=== PATIENT | female | born 1965 | race Caucasian/White ===

== ENCOUNTER 2017-02-24 19:51 | Emergency (ER) | payer BC ==
[~2017-02-24] VITALS: Ht 175.3 cm; Wt 71.7 kg
[~2017-02-24 19:51] MED LIST: ACET-1256 PO; ATV/1 PO; BUSP-8 PO; DICY10CA12 PO; ESCI1TAB10 PO; ESTR1TAB2 PO; FLUT0.0529 NAE; FLXHP PO; IBUP-1050 PO; ONDA4TAB10 PO; RANI150T3 PO
[2017-02-24 20:03] VITALS: TEMP 36.9; Ht 175.3 cm; Wt 71.7 kg
[2017-02-24] MEDS ORDERED: FLUT0.15 NAE (22:37)
[2017-02-24] MEDS ORDERED: CYCL10TA6 PO (22:37)
[2017-02-24] MEDS ORDERED: ONDANSETRON INJ 2 MG/ML 2 ML VIAL IV STA (22:44)
[2017-02-24] MEDS ORDERED: SODIUM CHLORIDE 0.9% 1000ML 1,000 ML IV STA (22:44)
[2017-02-24] MEDS ORDERED: MoRPHine SULFATE 2 MG/ML CARP IV STA (22:44)
[2017-02-24 23:00] LABS: BASO % 0.9 %; BASO ABS # 0.05 K/uL (0-0.2); COMPLETE YES; EOS % 2.7 %; HEMATOCRIT 36.7 % (37-47); IG% 0.2 %; LYMPH % 45.2 %; LYMPH ABS # 2.54 K/uL (1.2-3.4); MEAN CELL VOLUME 91.8 fL (80-100); MEAN CORPUSCULAR HGB CONC 34.9 g/dl (32-36); MEAN PLATELET VOLUME 9.8 fL (7.4-10.4); MONO % 5.3 %; NEUT % 45.7 %; PLATELET COUNT 217 K/uL (130-400); WHITE BLOOD COUNT 5.62 K/uL (4.8-10.8)
[2017-02-24] MEDS ORDERED: OPTIRAY 320 IV PRN (23:00)
--- NOTE | 2017-02-24 23:04 | DIAGNOSTIC IMAGING REPORT ---
CHEST ONE VIEW PORTABLE CLINICAL HISTORY: cp dyspnea COMPARISON STUDY: No previous studies for comparison. FINDINGS: The bones soft tissues and hemidiaphragms are normal. The cardiomediastinal silhouette is normal. The lungs are clear. The pulmonary vasculature is normal. IMPRESSION: Negative chest. Electronically signed by: Titi Townsend M.D. 02/24/2017 11:02 PM Dictated Date/Time: 02/24/2017 11:02 PM
[2017-02-24 23:07] LABS: PARTIAL THROMBOPLASTIN RATIO 1.1; PROTHROMBIN TIME (PATIENT) 10.6 SECONDS (9.0-12.0)
[2017-02-24 23:10] LABS: ISTAT CREATININE 0.7 mg/dl (0.6-1.3); ISTAT HEMOGLOBIN 13.3 g/dl (12.0-16.0); ISTAT IONIZED CALCIUM 1.23 mmol/l (1.12-1.32)
[2017-02-24 23:15] LABS: URINE APPEARANCE CLEAR (CLEAR); URINE BILIRUBIN NEG (NEG); URINE COLOR YELLOW; URINE NITRITE NEG (NEG); URINE PH 7.5 (4.5-7.5); URINE SPECIFIC GRAVITY 1.004 (1.000-1.030); UROBILINOGEN NEG (NEG); ZZUR CULT IF INDIC CLEAN CATCH NO
[2017-02-24 23:20] LABS: BUN/CREATININE RATIO 8.6 (10-20); CALCIUM 9.1 mg/dl (8.5-10.1); CREATININE 0.8 mg/dl (0.60-1.20); MAGNESIUM 2.2 mg/dl (1.8-2.4); POTASSIUM 3.7 mmol/L (3.5-5.1)
[2017-02-24 23:23] LABS: MANUAL MICROSCOPIC REQUIRED? NO; REVIEW REQ? NO
[2017-02-24 23:24] LABS: ALB/GLOB RATIO 1.1 (0.9-2); CKMB/CK RATIO 1.2 (0-3.0)
[2017-02-25] MEDS ORDERED: MoRPHine SULFATE 4 MG/ML 1 ML CARP\\VIAL IV STA (00:04)
[2017-02-25] MEDS ORDERED: NORCO 5/325MG HOME PACK PO ONE (01:45)
[2017-02-25] MEDS ORDERED: HYDR-5688 PO ×2 (01:46→01:53)
--- NOTE | 2017-02-25 01:47 | EMERGENCY ROOM VISIT NOTE ---
History First contact with patient: 22:28 Chief Complaint: BACK PAIN Stated Complaint: LOW BACK PAIN, NAUSEA, L ARM FEELS ODD History of Present Illness The patient is a 51 year old female who presents to the Emergency Department by private vehicle for evaluation of her back pain with radiation to her chest and arm. She reports that she developed pain in her upper back earlier today. She reports that her symptoms progressively worsened this evening which prompted her to take a muscle relaxer. She used this medication without relief of symptoms. She had transient episode of pain to the LEFT arm. The patient has a long-standing history of spine disease. She is on medications for this daily. The patient reports a history of celiac disease alone. She reports no history of high blood pressure heart disease. She reports no significant family history of heart disease. The patient rates her current discomfort as a 7/10. She denies any headaches, dizziness, lightheadedness, palpitations, shortness of breath, pleuritic pain, nausea, or vomiting. Review of Systems A complete 10-point Review of Systems was discussed with the patient, with pertinent positives and negatives listed in the History of Present Illness. All remaining Review of Systems questions can be considered negative unless otherwise specified. Past Medical/Surgical History Medical Problems: (1) Celiac disease (2) Psoriasis Surgical Problems: (1) History of cholecystectomy (2) History of hysterectomy Family History Cancer FH: HTN (hypertension) FH: lung disease Heart disease Social History Smoking Status: Never Smoker Alcohol Use: none Drug Use: none Marital Status: Housing Status: lives with family Occupation Status: employed Current/Historical Medications Scheduled Buspirone Hcl (Buspirone Hcl), 15 MG PO BID Escitalopram Oxalate (Lexapro), 20 MG PO DAILY Estradiol (Estrace), 1 MG PO DAILY Fluticasone Propionate (Nasal) (Flonase Allergy Relief), 2 SPRAYS SLIM DAILY Ranitidine Hcl (Zantac), 150 MG PO BID Scheduled PRN Cyclobenzaprine Hcl (Flexeril), 10 MG PO TID PRN for Muscle Spasms Hydrocodone/Acetaminophen 5MG/325MG ([place] 5MG/325MG), 1-2 TABLET PO Q4H PRN for Pain Ibuprofen (Advil), 400 MG PO QID PRN for Headache or Pain Lorazepam (Ativan), 1 MG PO DAILY PRN for Anxiety Ondasetron Odt (Zofran Odt), 4 MG PO Q6H PRN for Nausea Allergies Coded Allergies: Adalimumab (Verified Allergy, Intermediate, WHELTS AT INJECTION SITE, 02/24) Adhesives (Verified Allergy, Mild, 02/24/17) Erythromycin (Verified Allergy, Mild, HIVES, 02/24/17) Bacitracin (Verified Allergy, Unknown, Unknown, 02/24/17) Reported by PT Naproxen (Verified Allergy, Unknown, Unknown, 02/24/17) Reported by PT. Neomycin (Verified Allergy, Unknown, Unknown, 02/24/17) Reported by PT Polymyxin B (Verified Allergy, Unknown, 02/24/17) Rabeprazole (Verified Allergy, Unknown, 02/24/17) Gluten (Verified Adverse Reaction, Mild, flattens villae, 02/24/17) Moxifloxacin (Verified Adverse Reaction, Unknown, VISUAL DISTURBANCE, 02/24) Physical Exam Vital Signs Date Time Temp Pulse Resp B/P Pulse Ox O2 Delivery O2 Flow Rate FiO2 02/25/17 01:59 74 18 140/88 98 02/25/17 01:00 66 18 142/80 97 Room Air 02/25/17 00:00 68 18 150/87 97 Room Air 02/24/17 23:42 70 02/24/17 23:39 Room Air 02/24/17 23:12 65 18 140/83 94 Room Air 02/24/17 21:47 54 18 146/74 100 Room Air 02/24/17 20:03 36.9 67 18 146/90 97 Room Air Pain Rating (0-10): 7 Physical Exam VITAL SIGNS - Vital signs and nursing notes were reviewed. GENERAL - 51-year-old female appearing her stated age who is in no acute distress. Communicates well with provider and answers questions appropriately. NECK - Neck with FROM. Supple to palpation. No spinous process or paraspinal muscle tenderness to palpation. LUNGS - Chest wall symmetric without accessory muscle use, intercostals retractions, or central cyanosis. Normal vesicular breath sounds CTA B/L. No wheezes, rales, or rhonchi appreciated. CARDIAC - RRR with S1/S2. No murmur, rubs, or gallops appreciated. No reproducible tenderness to palpation appreciated over the anterior chest wall. ABDOMEN - Abdominal contour flat and without pulsations or visible masses. BS normoactive all four quadrants. No tenderness, palpable masses, hepatosplenomegaly, or ascites noted. BACK - tenderness with palpation to the bilateral paraspinal musculature of the mid thoracic spine. No point tenderness over the spinous processes. No step- off deformities noted. EXTREMITIES - No clubbing or peripheral cyanosis. No pretibial edema present. +3 /5 radial and dorsalis pedis pulses palpated throughout. +5/5 strength noted in UE/LE bilaterally. NEUROLOGIC - Cranial nerves II through XII grossly intact. Sensory intact to light touch throughout. Reflexes equal bilaterally in the lower extremities. PSYCH - A&Ox3 and cooperates fully with examiner. Pt is very pleasant and interacts well with examiner. Medical Decision & Procedures ER Provider Diagnostic Interpretation: Radiological imaging and reports were reviewed by myself. Radiologist's Interpretation as follows: CHEST ONE VIEW PORTABLE CLINICAL HISTORY: cp dyspnea COMPARISON STUDY: No previous studies for comparison. FINDINGS: The bones soft tissues and hemidiaphragms are normal. The cardiomediastinal silhouette is normal. The lungs are clear. The pulmonary vasculature is normal. IMPRESSION: Negative chest. CT ANGIOGRAPHY THE CHEST WITHOUT A WITH CONTRAST CLINICAL HISTORY: Chest and back pain. Possible dissection. COMPARISON STUDY: Chest x-ray dated 02/24/2017 FINDINGS: Unenhanced images were obtained of the thorax. The patient was then scanned in a dynamic helical fashion during intravenous administration 1 through 18 cc of Optiray 320. MIP imaging was performed. Unenhanced images reveal no evidence of acute aortic hematoma. Postcontrast images reveal a 2 cm nodule of the thyroid isthmus. Dedicated thyroid ultrasonography is recommended in follow-up. There is no evidence of thoracic aortic aneurysm or dissection. There are no pulmonary artery filling defects to indicate acute pulmonary embolism. There are no pathologically enlarged axillary, mediastinal, or hilar lymph nodes. No pleural effusions are visualized. There is no evidence of focal pulmonary consolidation. There is a 4 mm solid right lower lobe pulmonary nodule. This is visualized on image #[id number]/321. There is a 5 mm solid right upper lobe pulmonary nodule as visualized on image #83/321. There is also a 4 mm pleural-based solid right upper lobe pulmonary nodule as visualized in image #83/321. Follow-up per Fleischner criteria is recommended. IMPRESSION: 1. Subcentimeter right lung pulmonary nodules. Follow-up per Fleischner criteria is recommended 2. 2 cm thyroid nodule. Thyroid ultrasonography is recommended in follow-up 3. No evidence of aortic aneurysm or dissection. CT SCAN OF THE THORACIC SPINE WITHOUT IV CONTRAST CLINICAL HISTORY: Thoracic back pain. COMPARISON STUDY: CT scan of the chest performed concurrently on 02/24/2017. TECHNIQUE: CT scan of the thoracic spine is performed from the lower cervical spine to the upper lumbar spine. Images are reviewed in the axial, sagittal, and coronal planes. IV contrast was not administered for this examination. CT DOSE: 525.39 mGy.cm FINDINGS: The skeletal structures appear osteopenic. There is no evidence of fracture or malalignment. No lytic or blastic bony lesion is seen. The transverse and spinous processes are intact. Small anterior osteophytes are noted throughout. The intervertebral disc spaces appear maintained. The central canal is clear as visualized. There is no evidence of neural foraminal stenosis. The visualized posterior ribs appear intact. The paraspinous soft tissues are within normal limits. There is a 1.7 cm low-attenuation nodule in the thyroid isthmus. The visualized lung parenchyma appears clear. See report of chest CT performed concurrently for detailed intrathoracic findings. IMPRESSION: 1. There is no acute bony abnormality seen involving the thoracic spine. 2. There is a 1.7 cm low-attenuation nodule identified in the thyroid isthmus. Follow-up with a nonemergent thyroid ultrasound is recommended for further assessment. Laboratory Results 02/24/17 22:43 Red Blood Count 4.00, Mean Corpuscular Volume 91.8, Mean Corpuscular Hemoglobin 32.0, Mean Corpuscular Hemoglobin Concent 34.9, Mean Platelet Volume 9.8, Neutrophils (%) (Auto) 45.7, Lymphocytes (%) (Auto) 45.2, Monocytes (%) (Auto) 5.3, Eosinophils (%) (Auto) 2.7, Basophils (%) (Auto) 0.9, Neutrophils # (Auto) 2.57, Lymphocytes # (Auto) 2.54, Monocytes # (Auto) 0.30, Eosinophils # (Auto) 0.15, Basophils # (Auto) 0.05 02/24/17 22:43 Test 02/24/17 22:43 02/24/17 22:53 02/24/17 22:54 02/24/17 22:55 White Blood Count 5.62 K/uL (4.8-10.8) Red Blood Count 4.00 M/uL (4.2-5.4) Hemoglobin 12.8 g/dL (12.0-16.0) Hematocrit 36.7 % (37-47) Mean Corpuscular Volume 91.8 fL (80-100) Mean Corpuscular Hemoglobin 32.0 pg (25-34) Mean Corpuscular Hemoglobin Concent 34.9 g/dl (32-36) Platelet Count 217 K/uL (130-400) Mean Platelet Volume 9.8 fL (7.4-10.4) Neutrophils (%) (Auto) 45.7 % Lymphocytes (%) (Auto) 45.2 % Monocytes (%) (Auto) 5.3 % Eosinophils (%) (Auto) 2.7 % Basophils (%) (Auto) 0.9 % Neutrophils # (Auto) 2.57 K/uL (1.4-6.5) Lymphocytes # (Auto) 2.54 K/uL (1.2-3.4) Monocytes # (Auto) 0.30 K/uL (0.11-0.59) Eosinophils # (Auto) 0.15 K/uL (0-0.5) Basophils # (Auto) 0.05 K/uL (0-0.2) RDW Standard Deviation 41.9 fL (36.4-46.3) RDW Coefficient of Variation 12.3 % (11.5-14.5) Immature Granulocyte % (Auto) 0.2 % Immature Granulocyte # (Auto) 0.01 K/uL (0.00-0.02) Prothrombin Time 10.6 SECONDS (9.0-12.0) Prothromb Time International Ratio 1.0 (0.9-1.1) Activated Partial Thromboplast Time 27.3 SECONDS (21.0-31.0) Partial Thromboplastin Ratio 1.1 Est Creatinine Clear Calc Drug Dose 88.0 ml/min Estimated GFR () 99.6 Estimated GFR (Non- 86.0 BUN/Creatinine Ratio 8.6 (10-20) Calcium Level 9.1 mg/dl (8.5-10.1) Magnesium Level 2.2 mg/dl (1.8-2.4) Total Bilirubin 0.9 mg/dl (0.2-1) Aspartate Amino Transf (AST/SGOT) 17 U/L (15-37) Alanine Aminotransferase (ALT/SGPT) 16 U/L (12-78) Alkaline Phosphatase 63 U/L (45-117) Total Creatine Kinase 93 U/L (26-192) Creatine Kinase MB 1.1 ng/ml (0.5-3.6) Creatine Kinase MB Ratio 1.2 (0-3.0) Total Protein 7.8 gm/dl (6.4-8.2) Albumin 4.0 gm/dl (3.4-5.0) Globulin 3.8 gm/dl (2.5-4.0) Albumin/Globulin Ratio 1.1 (0.9-2) Lipase 106 U/L (73-393) Bedside Troponin I 0.000 ng/ml (0-0.045) Bedside Hemoglobin 13.3 g/dl (12.0-16.0) Bedside Hematocrit 39 % (37-47) Bedside Sodium 141 mEq/L (135-144) Bedside Potassium 3.7 mEq/L (3.3-5.0) Bedside Chloride 101 mEq/L (101-112) Bedside Total CO2 26 mEq/l (24-31) Anion Gap 19.0 mmol/L (16-25) Bedside Blood Urea Nitrogen 6 mg/dl (7-18) Bedside Creatinine 0.7 mg/dl (0.6-1.3) Bedside Glucose (other) 93 mg/dl (70-99) Bedside Ionized Calcium (Lynn) 1.23 mmol/l (1.12-1.32) Urine Color YELLOW Urine Appearance CLEAR (CLEAR) Urine pH 7.5 (4.5-7.5) Urine Specific [place] 1.004 (1.000-1.030) Urine Protein NEG (NEG) Urine Glucose (UA) NEG (NEG) Urine Ketones NEG (NEG) Urine Occult Blood TRACE (NEG) Urine Nitrite NEG (NEG) Urine Bilirubin NEG (NEG) Urine Urobilinogen NEG (NEG) Urine Leukocyte Esterase NEG (NEG) Urine WBC (Auto) 0 /hpf (0-5) Urine RBC (Auto) 0-4 /hpf (0-4) Urine Hyaline Casts (Auto) 0 /lpf (0-5) Urine Epithelial Cells (Auto) 10-20 /lpf (0-5) Urine Bacteria (Auto) NEG (NEG) Medications Administered Medications (Trade) Dose Ordered Sig/Fahad Route Start Time Stop Time Status Last Admin Dose Admin Sodium Chloride (Nss 1000ml) 1,000 ml @ 999 mls/hr Q1H1M STAT IV 02/24/17 22:44 02/24/17 23:44 DC 02/24/17 23:08 999 MLS/HR Morphine Sulfate (MoRPHine SULFATE INJ) 2 mg NOW STAT IV 02/24/17 22:44 02/24/17 22:48 DC 02/24/17 23:08 2 MG Ondansetron HCl (Zofran Inj) 4 mg NOW STAT IV 02/24/17 22:44 02/24/17 22:48 DC 02/24/17 23:07 4 MG Morphine Sulfate (MoRPHine SULFATE INJ) 4 mg NOW STAT IV 02/25/17 00:04 02/25/17 00:05 DC 02/25/17 00:11 4 MG Acetaminophen/ Hydrocodone Bitart ([place] 5/325mg Home Pack) 1 homepack UD ONCE PO 02/25/17 01:45 02/25/17 01:46 DC 02/25/17 01:55 1 HOMEPACK Procedure Patient was placed on the rn cardiac rehab and monitored throughout the entire extent of their stay. In addition, the patient's pulse oximetry was monitored throughout the entire stay. Any abnormalities or aberrancies were addressed appropriately. ECG Indication: chest pain Rate (beats per minute): 55 Rhythm: sinus bradycardia Findings: no acute ischemic change, no ectopy Comparison ECG Date: no T-wave abnormality noted when compared to 04/21/2014. ED Course Patient was seen and evaluated by myself. Labs were drawn, saline lock in place. EKG and chest x-rays were obtained. I-STAT was obtained to clear the patient's kidney function. CT for dissection of the chest as well as CT of the thoracic spine were obtained. Laboratory results demonstrate no acute leukocytosis, worrisome anemia, or bandemia. The patient has no significant electrolyte abnormalities. Cardiac enzymes are negative. Troponin was negative. Patient was treated with 2 mg morphine and 4 mg Zofran intravenously. Patient was reevaluated and resting comfortable. She requests something stronger for pain. She was treated with an additional 4 mg morphine. Case was discussed with my attending physician who agrees with diagnostic approach and treatment plan. Laboratory results and imaging studies were reviewed with the patient who acknowledges understanding. She was instructed to follow-up with her primary care provider for continued management. She was educated on worrisome symptoms for return visit to the emergency department. Patient discharged home in good condition. Medical Decision Given the patient's presentation and stated complaint, I did elect to perform the above-mentioned workup. The patient presents today with thoracic back pain as well as pain that radiates to her chest. She is had no fever or recent illness. CT of the chest was unremarkable as was CT of thoracic spine. I do feel the patient's symptoms are likely more musculoskeletal nature per her exam. Her cardiac enzymes are negative despite ongoing symptoms throughout the entire day. EKG is unchanged. Patient's pain was adequately controlled the emergency department. The patient will follow closely with her primary care provider from today's visit. She was educated on worrisome symptoms for return visit to the emergency department. Patient discharged home in good condition. In the evaluation and treatment of this patient, the following differential diagnoses were considered: KS, ASC, Dysrhythmia, Angina, Mediastinitis, GERD, Esophagitis, PE, Pneumonia, Bronchitis, Costochondritis, Rib Fracture, Zoster. Impression Primary Impression: Thoracic back pain Additional Impression: Epigastric abdominal pain Departure Information Dispostion Home / Self-Care Condition GOOD Prescriptions Hydrocodone/Acetaminophen 5MG/325MG ([place] 5MG/325MG) Tab 1-2 TABLET PO Q4H Y for Pain, #16 TAB For Initial Treatment Prov: Doe Armstrong PA-C 02/25/17 Referrals Marilyn Mackay D.O. (PCP) Patient Instructions My [facility] Additional Instructions You have been treated in the Emergency Department for Back Pain. You have received pain medicine in the emergency department which impairs your ability to operate a vehicle. It is illegal for you to drive after receiving these medicines. You have been prescribed [place] to be used for pain control. This is a narcotic medication. You cannot drive or consume alcohol while on this medicine. This medicine should only be used for pain that cannot be controlled with over-the- counter pain medicines. For pain control, you can use the following [id number] medicines (if >12 yo): - Regular strength (325mg/tab) Tylenol (acetaminophen) 2 tabs every 4-6 hours as needed. Do not exceed 12 tablets in a 24 hour period. Avoid taking more than 4 grams (4000 mg) of Tylenol per day. This includes any other sources of acetaminophen you may take on a regular basis. - Regular strength (200 mg/tab) Advil (ibuprofen) 1-2 tabs every 4-6 hours as needed. Do not exceed a dose of 3200 mg per day. If this is an acute injury, ice can be applied to the area of pain for the first 3 days to help decrease pain and inflammation. After the first 3 days, a heating pad can be used over the area for continued soothing relief. You should schedule a follow-up appointment in 2-3 days with your Primary Care Provider for further evaluation and treatment of your back pain. Return to the Emergency Department if your current symptoms worsen despite treatment course outlined above, or if you develop any of the following symptoms : intractable pain despite aforementioned treatment course, loss of control of your bowel or bladder, numbness or tingling in your groin, or development of a fever. Problem Qualifiers Primary Impression: Thoracic back pain Chronicity: acute Back pain laterality: bilateral Qualified Codes: M54.6 - Pain in thoracic spine
[2017-02-25 01:59] VITALS: BP 140/88; PULSE 74; O2SAT 98
--- NOTE | 2017-02-25 07:37 | DIAGNOSTIC IMAGING REPORT ---
CT ANGIOGRAPHY THE CHEST WITHOUT A WITH CONTRAST CLINICAL HISTORY: Chest and back pain. Possible dissection. COMPARISON STUDY: Chest x-ray dated 02/24/2017 FINDINGS: Unenhanced images were obtained of the thorax. The patient was then scanned in a dynamic helical fashion during intravenous administration 1 through 18 cc of Optiray 320. MIP imaging was performed. Unenhanced images reveal no evidence of acute aortic hematoma. Postcontrast images reveal a 2 cm nodule of the thyroid isthmus. Dedicated thyroid ultrasonography is recommended in follow-up. There is no evidence of thoracic aortic aneurysm or dissection. There are no pulmonary artery filling defects to indicate acute pulmonary embolism. There are no pathologically enlarged axillary, mediastinal, or hilar lymph nodes. No pleural effusions are visualized. There is no evidence of focal pulmonary consolidation. There is a 4 mm solid right lower lobe pulmonary nodule. This is visualized on image #[id number]. There is a 5 mm solid right upper lobe pulmonary nodule as visualized on image #83/321. There is also a 4 mm pleural-based solid right upper lobe pulmonary nodule as visualized in image #83/321. Follow-up per Fleischner criteria is recommended. IMPRESSION: 1. Subcentimeter right lung pulmonary nodules. Follow-up per Fleischner criteria is recommended 2. 2 cm thyroid nodule. Thyroid ultrasonography is recommended in follow-up 3. No evidence of aortic aneurysm or dissection. Please refer to below summary of Fleischner criteria recommendations for follow-up of incidental CT nodules (Valentín Hoyt, Guidelines for management of small pulmonary nodules detected on CT scans: A statement from the Fleischner Society, Radiology 237: [id number].) SOLID NODULES Solitary nodule size: <6 mm * low risk patients: no follow-up needed * high risk patients: optional CT at 12 months Solitary nodule size: 6-8 mm * low risk patients: follow-up at 6-12 months, then consider further follow-up at 18-24 months * high risk patients: initial follow-up CT at 6-12 months and then at 18-24 months if no change Solitary nodule size: >8 mm * either low or high risk patients - consider follow-up CT at 3 months, and/or CT-PET, and/or biopsy Multiple nodules size: <6 mm * low risk patients: no routine follow-up * high risk patients: optional CT at 12 months Multiple nodules size: 6-8 mm * low risk patients: follow-up at 3-6 months, then consider further follow-up at 18-24 months * high risk patients: follow-up at 3-6 months, then at 18-24 months if no change Multiple nodules size: >8 mm * low risk patients: follow-up at 3-6 months, then consider further follow-up at 18-24 months * high risk patients: follow-up at 3-6 months, then at 18-24 months if no change Note: newly detected indeterminate nodule in persons 35 years of age or older. * low risk patients: minimal or absent history of smoking and/or other known risk factors * high risk patients: history of smoking or of other known risk factors (e.g. first degree relative with lung cancer, or exposure to asbestos, radon, uranium) * if a nodule up to 8 mm is partly solid or is ground glass further follow-up is required after 24 months to exclude possible slow growing adenocarcinoma (MARSH[place]) SUBSOLID NODULES Solitary pure ground-glass nodule * nodule size <6 mm - no CT follow-up required * nodule size >=6 mm - follow-up CT at 6-12 months, then every 2 years until 5 years Solitary part-solid nodule * nodule size <6 mm - no CT follow-up required * nodule size >=6 mm - follow-up CT at 3-6 months. If unchanged, and solid component remains <6 mm, then annual follow-up for 5 years Multiple subsolid nodules * nodule size <6 mm - follow-up CT at 3-6 months, consider further follow-up at 2 and 4 years if stable * nodule size >=6 mm - follow-up CT at 3-6 months, subsequent management based on the most suspicious nodule(s) Electronically signed by: Martin Dunn M.D. 02/25/2017 7:35 AM Dictated Date/Time: 02/25/2017 7:29 AM
--- NOTE | 2017-02-25 09:20 | DIAGNOSTIC IMAGING REPORT ---
CT SCAN OF THE THORACIC SPINE WITHOUT IV CONTRAST CLINICAL HISTORY: Thoracic back pain. COMPARISON STUDY: CT scan of the chest performed concurrently on 02/24/2017. TECHNIQUE: CT scan of the thoracic spine is performed from the lower cervical spine to the upper lumbar spine. Images are reviewed in the axial, sagittal, and coronal planes. IV contrast was not administered for this examination. CT DOSE: 525.39 mGy.cm FINDINGS: The skeletal structures appear osteopenic. There is no evidence of fracture or malalignment. No lytic or blastic bony lesion is seen. The transverse and spinous processes are intact. Small anterior osteophytes are noted throughout. The intervertebral disc spaces appear maintained. The central canal is clear as visualized. There is no evidence of neural foraminal stenosis. The visualized posterior ribs appear intact. The paraspinous soft tissues are within normal limits. There is a 1.7 cm low-attenuation nodule in the thyroid isthmus. The visualized lung parenchyma appears clear. See report of chest CT performed concurrently for detailed intrathoracic findings. IMPRESSION: 1. There is no acute bony abnormality seen involving the thoracic spine. 2. There is a 1.7 cm low-attenuation nodule identified in the thyroid isthmus. Follow-up with a nonemergent thyroid ultrasound is recommended for further assessment. Dictated: 02/25/2017 8:06 AM Transcribed: 02/25/2017 9:19 AM [facility] Electronically signed by: Kuldeep Clancy M.D. 02/25/2017 9:31 AM Dictated Date/Time: 02/25/2017 8:06 AM
== END 2017-02-25 02:00 | disposition home or self-care (01) ==
LOC: C.EDB 19:52 → C.EDA 02-25 02:00
DX: M54.6 Pain in thoracic spine (principal); R10.13 Epigastric pain; K90.0 Celiac disease; Z90.49 Acquired absence of other specified parts of digestive tract; Z90.710 Acquired absence of both cervix and uterus

== ENCOUNTER → 2017-05-17 | Outpatient (CLI) | payer BC ==
[~2017-05-17] MED LIST changes: -ACET-1256 PO; +CYCL10TA6 PO; -DICY10CA12 PO; -FLUT0.0529 NAE; +FLUT0.15 NAE; -FLXHP PO; +HYDR-5688 PO
--- NOTE | 2017-05-17 14:54 | MAMMOGRAPHY REPORT ---
BILATERAL DIGITAL SCREENING MAMMOGRAM TOMOSYNTHESIS WITH CAD: 05/17/2017 CLINICAL HISTORY: Routine screening examination. TECHNIQUE: Breast tomosynthesis in addition to standard 2D mammography was performed. Current study was also evaluated with a Computer Aided Detection (CAD) system. COMPARISON: Comparison is made to exams dated: 05/13/2016 mammogram, 05/10/2015 mammogram, 05/10/2014 m ammogram, 05/04/2014 mammogram, 04/28/2013 mammogram, and 04/27/2012 mammogram - [facility] nter. BREAST COMPOSITION: The tissue of both breasts is heterogeneously dense, which may obscure small mas ses. FINDINGS: There is a 13 mm lobulated, circumscribed mass in the upper outer posterior right breast. Although this could represent a cyst, definitive characterization with targeted ultrasound is recomm ended. There are diffuse bilateral microcalcifications in the breasts. No focal area of architectural disto rtion or new suspicious cluster of microcalcifications is seen. There are multiple bilateral circums cribed masses scattered breasts. IMPRESSION: ACR BI-RADS CATEGORY 0: INCOMPLETE EVALUATION: NEED ADDITIONAL IMAGING EVALUATION 1. A 13 mm lobulated and circumscribed mass in the upper outer posterior right breast could represen t a cyst. However, definitive characterization with targeted ultrasound is recommended. 2. There are multiple other circumscribed masses scattered in the breasts, which is a typically yessica gn mammographic pattern. However, at the time of diagnostic right breast ultrasound, bilateral whole breast screening ultrasound could be performed, given the breast density and multiple masses (30 min utes). The patient will be called to schedule an appointment. Approximately 10% of breast cancers are not detected with mammography. A negative mammographic report should not delay biopsy if a clinically suggestive mass is present. Lynne Borjas M.D. ay/:05/17/2017 08:12:31 Full Fashioned Garment Knitter: Rebecca Callejas RT(Linnea)(Manish), [facility] letter sent: Addl Imaging 0 BI-RADS Code: ACR BI-RADS Category 0: Incomplete Evaluation: Need Additional Imaging Evaluation
== END | disposition home or self-care (01) ==
LOC: C.MAMM 07:35
PROVIDERS: ATTEND Obstetrics & Gynecology
DX: Z12.31 Encounter for screening mammogram for malignant neoplasm of breast (principal); N63 Unspecified lump in breast

== ENCOUNTER → 2017-05-26 | Outpatient (CLI) | payer BC ==
--- NOTE | 2017-05-27 14:35 | MAMMOGRAPHY REPORT ---
ULTRASOUND OF RIGHT BREAST: 05/26/2017 CLINICAL HISTORY: 51-year-old woman called back from screening mammography for a lobulated 15 mm mass in the upper outer posterior right breast. Bilateral tomosynthesis images demonstrate multiple bila teral masses, and bilateral complete breast ultrasound was performed with particular attention to the right upper outer quadrant. COMPARISON: Comparison is made to exams dated: 05/17/2017 mammogram, 05/13/2016 mammogram, 05/10/2015 m ammogram, 05/10/2014 mammogram, 05/04/2014 mammogram, and 04/28/2013 mammogram - [facility] nter. FINDINGS: Real-time high-resolution sonographic evaluation was performed throughout each breast incl uding both axillae. Morphologically normal lymph nodes are identified in the left axilla, without evidence of suspicious adenopathy. The breast parenchymal echotexture of the left breast is heterogeneousdense. There are numerous benign simple cysts, complicated cysts, cyst clusters and indeterminate circumscribed hypoe choic solid versus cystic masses throughout the left breast. There is an oval circumscribed parallel isoechoic solid-appearing mass in the 12:00 left breast, 2 cm from the nipple, measuring 4.7 x 3.0 x 5.9 mm. A rounded isoechoic solid versus cystic mass is identified in the 1:00 left breast, 4 cm fr om the nipple, measuring 3.9 x 3.5 right 6.8 mm. A lobulated isoechoic and hypoechoic solid versus c ystic mass in the 6:00 periareolar left breast measures 5.0 x 2.8 x 5.0 mm. Another isoechoic to hyp oechoic round mass is identified in the 7:00 left breast, 1 cm from the nipple, measuring 4.1 x 4.1 x 5.8 mm. In the 10:00 left breast, 2 cm from the nipple there is a probable cyst cluster measuring 6 .3 x 4.7 x 5.0 mm. Morphologically normal lymph nodes are identified in the right axilla, without evidence of suspicious adenopathy. The breast parenchymal echotexture of the right breast is heterogeneously dense dense. Similar to the left breast there are numerous benign anechoic simple cysts and numerous cysts cluste rs of the right breast. There are also a few indeterminate hypoechoic solid versus cystic masses whi ch are detailed below. First however, a multicystic cluster containing numerous anechoic cystic spac es is identified in the 10:00 right breast, 5 cm from the nipple, measuring 18.6 x 7.2 x 12.2 mm. Th is cluster of cysts is thought to correlate with the prominent mammographic mass in the upper outer p osterior breast and is benign. There is a hypoechoic cystic versus solid mass with circumscribed bor ders in the 11:00 right breast, 3 cm from the nipple, measuring 6.1 mm. Another indeterminate hypoec hoic solid versus cystic mass in the 9:00 right breast, 5 cm from the nipple, measuring 4.5 x 4.7 mm. A possible cyst cluster in the 8:00 right breast, 4 cm from the nipple, measures 7.7 x 5.3 x 8.1 mm . Another probable small cyst cluster in the 2:00 right breast, 3 cm from the nipple, measuring 4.0 x 4.1 x 5.7 mm. (All of the simple cysts and cyst clusters seen in both breasts are measured on the ultrasound images but simply not detailed in the above report given how many cysts and cyst clusters are present in th e breasts.) IMPRESSION: ACR-BI-RADS CATEGORY 3: PROBABLY BENIGN - FOLLOW-UP RECOMMENDED 1. A lobulated 15 mm partially circumscribed mass in the upper outer posterior right breast identifi ed mammographically is thought to correlate with a prominent cluster of anechoic benign cysts on ultr asound in the 10:00 right breast. 2. There are numerous anechoic simple cysts, complicated cysts, cyst clusters and benign-appearing s olid versus cystic masses scattered throughout each breast on ultrasound that most likely represent b enign fibrocystic changes. There is no dominant suspicious solid mass seen in either breast. Howeve r, a short interval follow-up bilateral breast ultrasound with particular attention to the above desc ribed indeterminate masses in the left 12:00, 1:00, 6:00, 7:00 and 10:00, and the right 2:00, 8:00, 9 :00 and 11:00 axes is recommended in 6 months (30 minutes). These results and recommendations were discussed with the patient at the time of the exam. Lynne Borjas M.D. ay/:05/26/2017 16:36:56 Law Enforcement Instructor: Dr. Lynne Borjas, [facility] letter sent: Follow Up Recommended 3 BI-RADS Code: ACR-BI-RADS Category 3: Probably Benign
== END | disposition home or self-care (01) ==
LOC: C.MAMM 12:38
PROVIDERS: ATTEND Obstetrics & Gynecology
DX: R92.2 Inconclusive mammogram (principal); N63 Unspecified lump in breast; N60.11 Diffuse cystic mastopathy of right breast; N60.12 Diffuse cystic mastopathy of left breast

== ENCOUNTER → 2017-07-02 | Outpatient (CLI) | payer BC ==
--- NOTE | 2017-07-02 13:22 | MAMMOGRAPHY REPORT ---
ULTRASOUND OF RIGHT BREAST: 07/02/2017 CLINICAL HISTORY: The patient reports areas of right breast pain, below her right nipple and laterall y. She reports she has a history of multiple prior cysts. COMPARISON: Comparison is made to exams dated: 05/26/2017 ultrasound, 05/17/2017 mammogram, 05/13/2016 mammogram, 05/10/2015 mammogram, 05/04/2014 mammogram, and 04/28/2013 mammogram - [facility] enter. TECHNIQUE: Real-time targeted ultrasound of the right breast was performed. FINDINGS: Real-time, high resolution targeted ultrasound was performed of the areas of pain pointed out by the patient; the pain seemed to be primarily nonfocal and involving the right lower outer quad rant from approximately 6 to 9:00. There are innumerable anechoic cysts and cyst clusters seen throu ghout the right lower outer quadrant, as seen on a recent ultrasound exam. The largest cysts are see n within the right 6:00 periareolar region measuring 1.8 cm and right 9:00 breast, 4 cm from the nipp le, measuring 1.6 x 0.7 cm. Ultrasound was also performed of the right 5:00 periareolar breast which shows multiple small cysts as well. No large or dominant cyst is seen in this region that could pot entially be the sole cause of the patient's pain. No suspicious solid masses are evident. Given sabrina t no dominant cyst is seen that could be the sole cause of the patient's pain, aspiration was not per formed. IMPRESSION: ACR BI-RADS CATEGORY 2: BENIGN - FOLLOW-UP RECOMMENDED Innumerable cysts seen throughout the right lower outer quadrant in the region of the patient's pain. There is no sonographic evidence of malignancy. As recommended on the prior ultrasound report date d 05/26/2017, a six-month follow-up is still recommended for bilateral masses, due in October. Also recommend clinical follow-up for right breast pain. The patient was verbally notified of the results. Carolin Rasheed M.D. /:07/02/2017 13:08:13 Satellite Instruction Facilitator: Rebecca Mathur, [facility] letter sent: Normal 1/2 BI-RADS Code: ACR BI-RADS Category 2: Benign
== END | disposition home or self-care (01) ==
LOC: C.MAMM 12:28
PROVIDERS: ATTEND Obstetrics & Gynecology
DX: N60.01 Solitary cyst of right breast (principal); N64.4 Mastodynia

== ENCOUNTER → 2017-11-25 | Outpatient (CLI) | payer BC ==
[~2017-11-25] MED LIST changes: -HYDR-5688 PO
--- NOTE | 2017-11-25 13:45 | MAMMOGRAPHY REPORT ---
ULTRASOUND OF BOTH BREASTS: 11/25/2017 CLINICAL HISTORY: The patient presents for follow-up ultrasound for bilateral breast masses. The pre viously described right breast pain has subsided per the patient. She has no new complaints. COMPARISON: Comparison is made to exams dated: 07/02/2017 ultrasound, 05/26/2017 ultrasound, 05/17/2017 mammogram, 05/13/2016 mammogram, 05/10/2015 mammogram, and 05/04/2014 mammogram - [facility]. TECHNIQUE: Real-time targeted ultrasound of both breasts was performed. FINDINGS: Real-time, high-resolution targeted ultrasound was performed of the area of the previously seen left breast masses for which follow-up was recommended. In the left breast at 12:00, 2 cm from the nipple, there are multiple anechoic benign cysts and cyst clusters, including a cluster of anech oic cysts measuring 8 mm as well as an adjacent anechoic benign cyst measuring 5 mm. In the left althea ast at 1:00, 4 cm from the nipple, there is an oval circumscribed benign cyst measuring 4 x 2 x 4 mm. In the left breast at 6:00 periareolar region, there is an oval circumscribed cyst cluster which me asures 6 x 2 x 4 mm, not significantly changed compared to the April 2017 exam. In the left breast at 7:00, 1 cm from the nipple, there is an anechoic circumscribed cyst with a few thin internal septati ons measuring 6 x 5 x 7 mm. In the left breast at 10:00, 2 cm from the nipple, there is a benign cys t cluster which measures 7 x 5 x 6 mm. Numerous other benign cysts and cyst clusters are seen during the exam, which are all similar in appearance. No suspicious solid masses are evident. In the right breast at 8:00, 4 cm from the nipple, there is a benign cyst cluster which measures 10 x 7 mm, as well as multiple other adjacent benign cysts seen. Additionally, numerous cysts and cyst c lusters are seen within the right 9:00 breast. A benign cluster of cysts measuring 20 x 12 mm is see n within the right breast at 11:00, 3 cm from the nipple. A few adjacent cyst and cyst clusters are seen in the right breast at 2:00, 3 cm from the nipple, including an anechoic 5 mm benign simple cyst , and adjacent small cyst cluster measuring 4 mm, and another small cyst cluster measuring 4 x 3 x 4 mm. Multiple other cysts and cyst clusters were noted during the exam, which are all similar in appe arance. No suspicious solid masses are evident. IMPRESSION: ACR BI-RADS CATEGORY 2: BENIGN Multiple benign cysts and cyst clusters seen bilaterally. There is no sonographic evidence of malign chris. Return to annual mammogram screening schedule is recommended, due April 2018. The patient was verbally notified of the results. Carolin Rasheed M.D. ah/:11/25/2017 08:28:00 Attending Technologist: Huy BUCIO(Linnea)(M), [facility] It Infrastructure Manager: Carolin Rasheed MD, [facility] letter sent: Normal 1/2 BI-RADS Code: ACR BI-RADS Category 2: Benign
== END | disposition home or self-care (01) ==
LOC: C.MAMM 07:40
PROVIDERS: ATTEND Obstetrics & Gynecology
DX: N63.20 Unspecified lump in the left breast, unspecified quadrant (principal); N63.10 Unspecified lump in the right breast, unspecified quadrant; N60.11 Diffuse cystic mastopathy of right breast; N60.12 Diffuse cystic mastopathy of left breast

== ENCOUNTER → 2018-03-30 | Outpatient (CLI) | payer OTHER | END | disposition home or self-care (01) | LOC: C.PAPS 11:33 | PROVIDERS: ATTEND Obstetrics & Gynecology | DX: Z01.411 Encounter for gynecological examination (general) (routine) with abnormal findings (principal); R87.628 Other abnormal cytological findings on specimens from vagina ==

== ENCOUNTER 2022-02-09 19:02 | Observation (INO) ==
[2022-02-09 20:37] LABS: Basophils # (auto) 0.01 K/uL (0-0.2); Basophils % (auto) 0.1 %; Eosinophils # (auto) 0.18 K/uL (0-0.5); Eosinophils % (auto) 1.9 %; Hematocrit (blood only) 38.3 % (37-47); Hemoglobin 12.5 g/dL (12.0-16.0); Immature Granulocytes # (auto) 0.02 K/uL (0.00-0.02); Immature Granulocytes % (auto) 0.2 %; Lymphocytes % (auto) 4.2 %; Mean Corpuscular Hgb Conc 32.6 g/dL (32-36); Mean Platelet Volume 10.3 fL (7.4-10.4); Monocytes # (auto) 0.38 K/uL (0.11-0.59); Neutrophils # (auto) 8.48 K/uL (1.4-6.5); Neutrophils % (auto) 89.6 %; Platelet Count 189 K/uL (130-400); RDW Coefficient of Variation 12.7 % (11.5-14.5); RDW Standard Deviation 44.2 fL (36.4-46.3); Red Blood Count 4.03 M/uL (4.2-5.4); White Blood Count 9.47 K/uL (4.8-10.8)
--- NOTE | 2022-02-09 20:51 | Emergency Department Note ---
History of Present Illness General Chief complaint: Syncope Time Seen by Provider: 02/09/22 20:29 Source: patient Mode of arrival: ambulatory Limitations: no limitations History of Present Illness This patient is a 56-year-old female who started feeling ill around 132 with an upset stomach she took Mylanta and Gas-X she felt gassy. She felt cold and like she had some shivering she felt nauseated and like she needed to have a bowel movement she sat on the commode and had a bowel movement that was loose she had no blood or melena. She went up to wash her hands felt funny and then she said she passed out woke up on the floor with vomit in her mouth. She said her came and she laid back on the floor felt like her left hand was shaking but she was talking her eyes got glazed and she became unresponsive for a few seconds and she seemed to have some shaking but she was not postictal. No tongue biting no history of seizures. She has a headache in the left posterior scalp where she hit it on the floor. No acute neck pain no chest pain shortness of breath. No blood or melena stool no dysuria she has some mild epigastric discomfort. Has been vaccinated against Covid and had the booster. Home Medications Medication Instructions Recorded Confirmed Type buspirone 15 mg tablet 15 mg PO BID 06/10/20 02/09/22 History escitalopram oxalate 20 mg tablet 20 mg PO HS 06/10/20 02/09/22 History (Lexapro) fluticasone propionate 50 2 spray INTRANASAL QAM 06/10/20 02/09/22 History mcg/actuation nasal spray,suspension (Flonase Allergy Relief) lorazepam 1 mg tablet (Ativan) 1 mg PO DAILY PRN 06/10/20 02/09/22 History polyethylene glycol 3350 17 17 g PO Q OTHER DAY 06/10/20 02/09/22 History gram/dose oral powder (Miralax) clobetasol 0.05 % scalp solution 1 applic TOPICAL BID PRN 10/13/20 02/09/22 History estradiol 0.1 mg/24 hr semiweekly 1 patch TRANSDERMAL [id number] #8 ea 11/05/21 02/09/22 Rx transdermal patch dicyclomine 10 mg capsule 10 mg PO BID PRN 02/09/22 02/09/22 History famotidine 20 mg tablet 20 mg PO BID 02/09/22 02/09/22 History Allergies Allergy/AdvReac Type Severity Reaction Status Date / Time gluten Allergy Severe celiac's Verified 02/09/22 23:28 disease adalimumab Allergy Intermediate WHELTS AT Verified 02/09/22 23:28 INJECTION SITE bacitracin Allergy Intermediate Hives Verified 02/09/22 23:28 neomycin Allergy Intermediate Hives Verified 02/09/22 23:28 polymyxin B Allergy Intermediate Hives Verified 02/09/22 23:28 rabeprazole Allergy Intermediate Hives Verified 11/05/21 10:50 adhesive Allergy Mild Hives Verified 02/09/22 23:28 erythromycin base Allergy Mild HIVES Verified 02/09/22 23:28 moxifloxacin Allergy Mild VISUAL Verified 02/09/22 23:28 DISTURBANCE naproxen Allergy Mild Gastrointestinal Verified 02/09/22 23:28 Upset Past Med/Surg History Medical History (Updated 02/11/22 @ 12:36 by John Villanueva MD) Anxiety Celiac disease Depression History of anesthesia reaction during EGD 5yrs ago at [facility] pt had a vasovagal response, recovered without any further issues---has had other EGD without any issues IBS (irritable bowel syndrome) Nausea and vomiting after administration of anesthetic agent Osteoarthritis Surgical History History of cholecystectomy History of colonoscopy with polypectomy History of esophagogastroduodenoscopy (EGD) recently had an EGD with ultrasound @ [facility] 04/23/2020 History of hysterectomy with unilateral oophorectomy History of laparoscopy endometriosis History of left oophorectomy History of oral surgery tooth removal of lower jaw d/t benign cyst History of sinus surgery History of tooth extraction History of wisdom tooth extraction Family History Father Family hx colonic polyps Hypertension Sister Epilepsy Aunt Epilepsy maternal Mother Heart disease Hypertension Grandfather (Paternal) Heart disease Uncle Family history of multiple Paternal Other No family history of adverse response to anesthesia Social History Smoking Status: Never smoker Second Hand Exposure: No; Hx Alcohol Use: Yes Alcohol type: wine and hard liquor Hx Substance Use: No Preferred Language: Wolof Communication Ability: Effective [employer] Tr[employer] Assistants Required: No Beliefs That Will Affect Care: None Current Living Situation: Spouse Feels Safe at Home: Yes Assistive Devices: Contacts and Glasses Review of Systems A total of 10 systems reviewed and were otherwise negative Physical Exam Vital Signs Vital Signs - 24 hr 02/09/22 18:53 Temperature 37 C Temperature Source Oral Pulse Rate 78 Pulse Rhythm Regular Pulse Strength Normal Respiratory Rate 23 Respiratory Effort / Characteristics Non-Labored Respiratory Depth Normal Respiratory Pattern Regular Blood Pressure 140/66 Blood Pressure Mean 90 Blood Pressure Position Sitting Pulse Oximetry 97 Oxygen Delivery Method Room Air Sepsis Recent Fever Within 48 Hours No Sepsis New/Unexplained Change in Mental Status No Sepsis Action Taken by Nursing No Action Required General: Well developed well nourished male appearing middle-aged female who is alert and orient x3 and appears in no acute distress, breathing comfortably on room air. Normal speech answers all questions appropriately HEENT: Normal cephalic atraumatic. Pupils are equal round and reactive to light. Extraocular movements are intact. Oropharynx is pink with moist mucous membranes. No swelling of the mouth lips or tongue. Neck: Supple with a midline trachea. No meningeal signs or stiffness, no JVD or bruits. No Stridor. Chest: Clear to auscultation bilaterally. No wheezes or rhonchi. No increased work of breathing. Heart: Regular rate and rhythm without murmurs or gallops. Abdomen: Soft nontender, nondistended without rebound guarding or rigidity. Extremities: No cyanosis clubbing or edema. No calf tenderness or assymetry Spine/Back. Non tender to palpation. No CVA tenderness Skin: Good turgor without rashes. Neurologic exam: Cranial nerves two through 12 are intact. Motor and sensation are intact and symmetrical throughout. Finger toNose intact. No pronator drift. No tremor Course Administered Medications Acetaminophen (Acetaminophen 325 Mg Tab) 650 mg PO Q4H PRN PRN Reason: Pain or Fever Stop: 03/12/22 01:30 Last Admin: 02/11/22 03:43 Dose: 650 mg Documented by: [id number] Buspirone HCl (Buspirone 15 Mg Tab) 15 mg PO BID [facility] Stop: 03/12/22 08:59 Last Admin: 02/11/22 08:01 Dose: 15 mg Documented by: [id number] Admin: 02/10/22 20:04 Dose: 15 mg Documented by: [id number] Admin: 02/10/22 10:04 Dose: 15 mg Documented by: [id number] Enoxaparin Sodium (Enoxaparin Inj 30 Mg/0.3 Ml Syr) 30 mg SQ QAM [facility] Stop: 03/12/22 08:59 Last Admin: 02/11/22 08:00 Dose: 30 mg Documented by: [id number] Admin: 02/10/22 10:03 Dose: 30 mg Documented by: [id number] Escitalopram Oxalate (Escitalopram Oxalate 20 Mg Tab) 20 mg PO HS [facility] Stop: 03/12/22 20:59 Last Admin: 02/10/22 20:04 Dose: 20 mg Documented by: [id number] Famotidine (Famotidine 20 Mg Tab) 20 mg PO BID [facility] Stop: 03/12/22 08:59 Last Admin: 02/11/22 08:01 Dose: 20 mg Documented by: [id number] Admin: 02/10/22 20:04 Dose: 20 mg Documented by: [id number] Admin: 02/10/22 10:04 Dose: 20 mg Documented by: [id number] Fluticasone Propionate (Fluticasone Propionate Na Spr 16 Gm Btl) 2 sprays NA QAM [facility] Stop: 03/12/22 08:59 Last Admin: 02/11/22 08:01 Dose: 2 sprays Documented by: [id number] Admin: 02/10/22 10:04 Dose: 2 sprays Documented by: [id number] Promethazine HCl 12.5 mg/ (Sodium Chloride) 50.5 mls @ 202 mls/hr IV Q6H PRN PRN Reason: Nausea And Vomiting Stop: 03/12/22 01:30 Last Infusion: 02/10/22 20:48 Dose: 0 mls/hr Documented by: [id number] Admin: 02/10/22 19:58 Dose: 202 mls/hr Documented by: [id number] Infusion: 02/10/22 09:41 Dose: 0 mls/hr Documented by: [id number] Admin: 02/10/22 07:15 Dose: 202 mls/hr Documented by: [id number] Lorazepam (Lorazepam 2 Mg/1 Ml Vial) 0.25 mg IV Q1H PRN PRN Reason: anxiety pre/during mri Stop: 03/12/22 01:01 Last Admin: 02/10/22 01:46 Dose: 0.25 mg Documented by: [id number] Oxycodone HCl (Oxycodone Hcl Ir 5 Mg Tab (Immediate Release)) 5 mg PO Q4H PRN PRN Reason: Pain Stop: 02/24/22 01:30 Last Admin: 02/10/22 21:12 Dose: 5 mg Documented by: [id number] Polyethylene Glycol (Polyethylene (Miralax) 17 Gm Pack) 17 gm PO Q48H KELI Stop: 03/13/22 08:59 Last Admin: 02/11/22 08:02 Dose: Not Given Documented by: [id number] Discontinued Medications Acetaminophen (Acetaminophen 325 Mg Tab) 650 mg PO NOW STA Stop: 02/10/22 05:00 Last Admin: 02/10/22 05:20 Dose: 650 mg Documented by: [id number] Escitalopram Oxalate (Escitalopram Oxalate 20 Mg Tab) 20 mg PO NOW STA Stop: 02/10/22 01:03 Last Admin: 02/10/22 04:37 Dose: 20 mg Documented by: [id number] Gadobutrol (Gadobutrol 65ml Vial) 7 ml IV ONCE ONE Stop: 02/10/22 02:41 Last Admin: 02/10/22 02:40 Dose: 7 ml Documented by: [id number] Calcium Gluconate () 1,000 mg in 60 mls @ 240 mls/hr IV NOW STA Stop: 02/09/22 22:42 Last Infusion: 02/09/22 23:47 Dose: 0 mls/hr Documented by: [id number] Admin: 02/09/22 23:20 Dose: 240 mls/hr Documented by: [id number] Sodium Chloride (Nss 1000ml) 1,000 mls @ 999 mls/hr IV .Q1H1M KELI Stop: 02/09/22 23:28 Last Infusion: 02/10/22 00:17 Dose: 0 mls/hr Documented by: [id number] Infusion: 02/10/22 00:16 Dose: 0 mls/hr Documented by: [id number] Admin: 02/09/22 23:19 Dose: 999 mls/hr Documented by: [id number] Lactated Ringer's (Lr) 1,000 mls @ 80 mls/hr IV .[id number] ONE Stop: 02/10/22 12:29 Last Infusion: 02/10/22 14:26 Dose: 0 mls/hr Documented by: [id number] Infusion: 02/10/22 03:24 Dose: 80 mls/hr Documented by: [id number] Infusion: 02/10/22 01:50 Dose: 0 mls/hr Documented by: [id number] Admin: 02/10/22 01:49 Dose: 80 mls/hr Documented by: [id number] Ondansetron HCl (Ondansetron Inj 2 Mg/Ml 2 Ml Vial) 4 mg IV NOW STA Stop: 02/09/22 22:27 Last Admin: 02/09/22 23:19 Dose: 4 mg Documented by: [id number] Medical Decision Making Differential Diagnosis Syncope, seizure, concussion, vasovagal episode, arrhythmia, electrolyte or metabolic abnormality, anemia, Covid Medical Records Attestation: I reviewed the patient's medical records. Home Medications Current Medication List: was personally reviewed by me Laboratory Data Attestation: I reviewed the patient's lab results. Result diagrams: 02/10/22 05:25 02/10/22 05:25 Lab Results 02/09/22 02/09/22 02/09/22 Range/Units 19:10 19:10 19:10 WBC 9.47 (4.8-10.8) K/uL RBC 4.03 L (4.2-5.4) M/uL Hgb 12.5 (12.0-16.0) g/dL Hct 38.3 (37-47) % MCV 95.0 (80-100) fL MCH 31.0 (25-34) pg MCHC 32.6 (32-36) g/dL RDW Std Deviation 44.2 (36.4-46.3) fL RDW Coeff of Mikal 12.7 (11.5-14.5) % Plt Count 189 (130-400) K/uL MPV 10.3 (7.4-10.4) fL Immature Gran % (Auto) 0.2 % Neut % (Auto) 89.6 % Lymph % (Auto) 4.2 % Platte % (Auto) 4.0 % Eos % (Auto) 1.9 % Baso % (Auto) 0.1 % Neut # (Auto) 8.48 H (1.4-6.5) K/uL Lymph # (Auto) 0.40 L (1.2-3.4) K/uL Platte # (Auto) 0.38 (0.11-0.59) K/uL Eos # (Auto) 0.18 (0-0.5) K/uL Baso # (Auto) 0.01 (0-0.2) K/uL Immature Gran # (Auto) 0.02 (0.00-0.02) K/uL Sodium 135 L (136-145) mmol/L Potassium 4.1 (3.5-5.1) mmol/L Chloride 104 (98-107) mmol/L Carbon Dioxide 25 (21-32) mmol/L Anion Gap 6 (3-11) BUN 15 (6-23) mg/dl Creatinine 0.82 (0.6-1.2) mg/dl Est Cr Clr Drug Dosing 84.6 ml/min Est GFR ( Amer) 93.4 ml/min Est GFR (Non-Af Amer) 80.6 ml/min BUN/Creatinine Ratio 18.3 (10-20) Glucose 111 H (70-99(Fasting)) mg/dl Calcium 8.0 L (8.5-10.1) mg/dl Magnesium (1.7-2.4) mg/dl Total Bilirubin 1.4 H (0.2-1.0) mg/dl AST 41 H (13-39) U/L ALT 16 (7-52) U/L Alkaline Phosphatase 56 (34-104) U/L Troponin I < 0.03 (0-0.04) ng/ml Total Protein 6.1 (6.0-8.3) gm/dl Albumin 3.8 (3.4-5.0) gm/dl Globulin 2.3 L (2.5-4.0) gm/dl Albumin/Globulin Ratio 1.7 (0.9-2) TSH 3.936 (0.300-4.500) uIu/ml 02/09/22 Range/Units 19:10 WBC (4.8-10.8) K/uL RBC (4.2-5.4) M/uL Hgb (12.0-16.0) g/dL Hct (37-47) % MCV (80-100) fL MCH (25-34) pg MCHC (32-36) g/dL RDW Std Deviation (36.4-46.3) fL RDW Coeff of Mikal (11.5-14.5) % Plt Count (130-400) K/uL MPV (7.4-10.4) fL Immature Gran % (Auto) % Neut % (Auto) % Lymph % (Auto) % Platte % (Auto) % Eos % (Auto) % Baso % (Auto) % Neut # (Auto) (1.4-6.5) K/uL Lymph # (Auto) (1.2-3.4) K/uL Platte # (Auto) (0.11-0.59) K/uL Eos # (Auto) (0-0.5) K/uL Baso # (Auto) (0-0.2) K/uL Immature Gran # (Auto) (0.00-0.02) K/uL Sodium (136-145) mmol/L Potassium (3.5-5.1) mmol/L Chloride (98-107) mmol/L Carbon Dioxide (21-32) mmol/L Anion Gap (3-11) BUN (6-23) mg/dl Creatinine (0.6-1.2) mg/dl Est Cr Clr Drug Dosing ml/min Est GFR ( Amer) ml/min Est GFR (Non-Af Amer) ml/min BUN/Creatinine Ratio (10-20) Glucose (70-99(Fasting)) mg/dl Calcium (8.5-10.1) mg/dl Magnesium 1.7 (1.7-2.4) mg/dl Total Bilirubin (0.2-1.0) mg/dl AST (13-39) U/L ALT (7-52) U/L Alkaline Phosphatase (34-104) U/L Troponin I (0-0.04) ng/ml Total Protein (6.0-8.3) gm/dl Albumin (3.4-5.0) gm/dl Globulin (2.5-4.0) gm/dl Albumin/Globulin Ratio (0.9-2) TSH (0.300-4.500) uIu/ml Imaging Data Attestation: I personally reviewed and interpreted this imaging study as follows: My Impression: Chest x-rayno acute infiltrate, failure, pneumothorax seen on my interpretation Radiologist's Impression: Chest X-Ray 02/09/22 20:18 SINGLE VIEW CHEST CLINICAL HISTORY: Generalized weakness. FINDINGS: An AP, portable, upright chest radiograph is compared to chest x-ray and chest CT dated 02/24/2017. The heart is top normal for projection. A 4 mm right upper lobe pulmonary nodule is unchanged dating back to 2017. There is no airspace consolidation or pleural effusion. No pneumothorax is seen. The bony thorax is grossly intact. IMPRESSION: No active disease in the chest. ACT 112: Negative or not required by law. Electronically signed by: Kuldeep Clancy M.D. 02/09/2022 9:[address] 02/09/22 20:43 CT SCAN OF THE CERVICAL SPINE CLINICAL HISTORY: Fall. COMPARISON STUDY: No priors. TECHNIQUE: CT scan of the cervical spine is performed from the skull base to the upper thoracic spine. Images are reviewed in the axial, sagittal, and coronal planes. IV contrast was not administered for this examination. A dose lowering technique was utilized adhering to the principles of ALARA. FINDINGS: Skeletal structures: The skeletal structures are osteopenic. There is no evidence of fracture or subluxation involving the cervical spine. Vertebral body height and alignment are maintained. There is straightening of the cervical marco dosis. Anterior osteophytes are seen throughout. The odontoid process and lateral masses are intact. The atlantoaxial articulation is preserved noting productive degenerative change. The spinous processes appear intact. There is mild multilevel facet arthropathy. Intervertebral discs: The disc spaces are well maintained. Central canal: Widely patent. Soft tissues: The prevertebral and paraspinous soft tissues are within normal limits. There is a 1.8 cm thyroid nodule. This was also seen on a 2014 thyroid ultrasound. Calvarium: The visualized calvarium at the skull base appears intact. Brain parenchyma: Partially visualized brain parenchyma at the skull base is within normal limits. Sinuses and mastoids: There is trace fluid within the maxillary antra. Mild mucosal thickening is noted in the sphenoid sinuses. The mastoid air cells are well pneumatized. Lung apices: Clear as visualized. IMPRESSION: There is no evidence of fracture or subluxation involving the cervical spine. ACT 112: Negative or not required by law. Electronically signed by: Kuldeep Clancy M.D. 02/09/2022 9:[address] 02/09/22 20:43 CT head/brain wo con CLINICAL HISTORY: fall, hit head Technique: Contiguous axial CT images of the head were acquired from the base of the skull to the vertex without intravenous contrast administration. Images were viewed in brain, subdural and bone windows. Automated dose lowering techniques and/or adjustment according to patient size were utilized for this exam. Comparison: Comparison is made to CT head 04/10/2015 Findings: The ventricles, basal cisterns, and cerebral sulci are normal. There is no acute intracranial hemorrhage or evidence of acute territorial infarction. Neither mass effect, shift of the midline structures, nor abnormal extra-axial fluid collections are shown. Imaged portions of the paranasal sinuses and mastoid air cells are clear. The orbits appear normal. There are no acute fractures of the calvaria or scalp swelling. Impression: No acute intracranial hemorrhage, no evidence of acute territorial infarction or other acute intracranial disease process. ACT 112: Negative or not required by law. Electronically signed by: Donald Pedraza M.D. 02/09/2022 9:13 PM ECG Data Attestation: I personally reviewed and interpreted this ECG as follows: Indication: + weakness Rate (beats per minute): 76 Rhythm: + normal sinus ECG Intervals/blocks: + Normal QRS and + Normal QT ECG Holloway: + Normal ECG ST segments: + Normal ST segments ECG Findings: no PACs or no PVCs Comparison ECG Date: from (10/13/20) Change: no significant change MDM Narrative This patient is a 56-year-old female who comes in after having a syncopal episode. It ispossible she could have a seizure but she was not postictal. She is feeling better right now except for some nausea. She had Zofran before without any difficulties. IV access was established she was hydrated with 1 L IV normal saline bolus she was placed on a athletic monitor. She was given Zofran 4 mg IV. Initial EKG does not suggest acute coronary syndrome or arrhythmia. Multiple blood testing was obtained also did a CAT scan of her head and neck. CAT scans of her head and neck were unremarkable. Blood work was unremarkable. There is nothing thus far to suggest arrhythmia or ischemic cardiac event. Given her syncopal episode I do think she needs to be admitted/observed. Again she had seizure-like activity briefly but I think it was more likely syncope but this could further be evaluated in the hospital as well. I did consult with Dr. Meier from the [facility] to see her in the ER for these measures. Covid testing was negative Continuous cardiac monitoring: Order was placed in the EMR continuous cardiac monitoring. Upon my interpretation, the patient was noted to be in normal sinus rhythm with a rate of 74. Impression & Plan Syncope, Weakness, Vomiting, Lab test negative for COVID-19 virus Discharge Plan Visit Data Chief Complaint: Syncope ED Provider: John Villanueva Discharge Problem: Syncope, Weakness, Vomiting, Lab test negative for COVID-19 virus Patient Disposition: Admitted As Inpatient Discharge Instructions Interventions: ED Discharge Assessment Last Done: 02/10/22 01:42 Discharge Problem: Syncope Qualifiers: Syncope type: unspecified Qualified Code(s): R55 - Syncope and collapse Vomiting Qualifiers: Vomiting type: unspecified Nausea presence: with nausea Qualified Code(s): R11.2 - Nausea with vomiting, unspecified
[2022-02-09 20:59] LABS: Troponin I < 0.03 ng/ml (0-0.04)
[2022-02-09 21:01] LABS: Alanine Aminotransferase 16 U/L (7-52); Albumin Globulin Ratio 1.7 (0.9-2); Albumin Level 3.8 gm/dl (3.4-5.0); Alkaline Phosphatase 56 U/L (34-104); Anion Gap 6 (3-11); Aspartate Aminotransferase 41 U/L (13-39); BUN Creatinine Ratio 18.3 (10-20); Bilirubin,Total 1.4 mg/dl (0.2-1.0); Blood Urea Nitrogen 15 mg/dl (6-23); Carbon Dioxide 25 mmol/L (21-32); Chloride 104 mmol/L (98-107); Creatinine Clr Calc Pharmacy 84.6 ml/min; Est GFR (African American) 93.4 ml/min; Est GFR (Non-African American) 80.6 ml/min; Globulin 2.3 gm/dl (2.5-4.0); Glucose 111 mg/dl (70-99(Fasting)); Potassium 4.1 mmol/L (3.5-5.1); Sodium 135 mmol/L (136-145); Total Protein 6.1 gm/dl (6.0-8.3)
--- NOTE | 2022-02-09 21:09 | XRay Report ---
SINGLE VIEW CHEST CLINICAL HISTORY: Generalized weakness. FINDINGS: An AP, portable, upright chest radiograph is compared to chest x-ray and chest CT dated 01/28. The heart is top normal for projection. A 4 mm right upper lobe pulmonary nodule is unchanged dating back to 2016. There is no airspace consolidation or pleural effusion. No pneumothorax is seen . The bony thorax is grossly intact. IMPRESSION: No active disease in the chest. ACT 112: Negative or not required by law. Electronically signed by: Kuldeep Clancy M.D. 02/09/2022 9:07 PM
--- NOTE | 2022-02-09 21:18 | CT Scan Report ---
CT head/brain wo con CLINICAL HISTORY: fall, hit head Technique: Contiguous axial CT images of the head were acquired from the base of the skull to the chetan gagan without intravenous contrast administration. Images were viewed in brain, subdural and bone [facility]. Automated dose lowering techniques and/or adjustment according to patient size were utilized for this exam. Comparison: Comparison is made to CT head 04/10/2015 Findings: The ventricles, basal cisterns, and cerebral sulci are normal. There is no acute intracranial hemorrh age or evidence of acute territorial infarction. Neither mass effect, shift of the midline structures , nor abnormal extra-axial fluid collections are shown. Imaged portions of the paranasal sinuses and mastoid air cells are clear. The orbits appear normal. There are no acute fractures of the calvaria or scalp swelling. Impression: No acute intracranial hemorrhage, no evidence of acute territorial infarction or other acute intracra nial disease process. ACT 112: Negative or not required by law. Electronically signed by: Donald Pedraza M.D. 02/09/2022 9:13 PM
--- NOTE | 2022-02-09 21:26 | CT Scan Report ---
CT SCAN OF THE CERVICAL SPINE CLINICAL HISTORY: Fall. COMPARISON STUDY: No priors. TECHNIQUE: CT scan of the cervical spine is performed from the skull base to the upper thoracic spine . Images are reviewed in the axial, sagittal, and coronal planes. IV contrast was not administered fo r this examination. A dose lowering technique was utilized adhering to the principles of ALARA. FINDINGS: Skeletal structures: The skeletal structures are osteopenic. There is no evidence of fracture or subl uxation involving the cervical spine. Vertebral body height and alignment are maintained. There is st raightening of the cervical lordosis. Anterior osteophytes are seen throughout. The odontoid process and lateral masses are intact. The atlantoaxial articulation is preserved noting productive degenerat kerry change. The spinous processes appear intact. There is mild multilevel facet arthropathy. Intervertebral discs: The disc spaces are well maintained. Central canal: Widely patent. Soft tissues: The prevertebral and paraspinous soft tissues are within normal limits. There is a 1.8 cm thyroid nodule. This was also seen on a 2014 thyroid ultrasound. Calvarium: The visualized calvarium at the skull base appears intact. Brain parenchyma: Partially visualized brain parenchyma at the skull base is within normal limits. Sinuses and mastoids: There is trace fluid within the maxillary antra. Mild mucosal thickening is not ed in the sphenoid sinuses. The mastoid air cells are well pneumatized. Lung apices: Clear as visualized. IMPRESSION: There is no evidence of fracture or subluxation involving the cervical spine. ACT 112: Negative or not required by law. Electronically signed by: Kuldeep Clancy M.D. 02/09/2022 9:24 PM
[2022-02-09] MEDS ORDERED: ONDANSETRON INJ 2 MG/ML 2 ML VIAL IV STA (22:26)
[2022-02-09] MEDS ORDERED: SODIUM CHLORIDE 0.9% 1000ML 1,000 ML IV SCH (22:28)
[2022-02-09] MEDS ORDERED: CALCIUM GLUCONATE 1,000 MG/60 ML BAG IV STA (22:28)
--- NOTE | 2022-02-09 23:48 | History & Physical Report ---
Date of Service February 09, 2022 Assessment & Plan (1) Syncope: Plan: Recurrent syncope Possibly vasovagal given abdominal discomfort, emesis symptoms Rule out seizure disorder given buccal injury and bowel incontinence symptoms, orthostasis, cardiac dysfunction as other differentials hx GERD IBS constipation predominant, stable on regimen anxiety/mood disorder, at baseline OBS Medical telemetry Check orthostatic vitals, TTE EEG, MRI brain for possible seizure work-up Neurology consult Re: Possible seizures Ativan as needed, seizure precautions for now DVT prophylaxis. Lovenox subcu Full code Patient requesting updates from providers. Mr. John Hidalgo, contact #[phone]. Text document was generated using [employer] voice recognition software. It may contain grammatical or spelling errors. Kindly contact undersigned for clarification of any documentation item in question. History of Present Illness Chief Complaint: Passed out Primary Care Provider: Layla Mcdowell, History obtained from patient, family, and records. Medical history significant for GERD, IBS constipation predominant, celiac disease, anxiety/mood disorder, psoriasis. Patient has a history of recurrent syncope attributed to orthostasis during her younger years. No recent episodes in the last few decades. Patient noted upset stomach and feeling unwell after a lunch of noodles. Patient felt cold and was shaking. Subsequent unwitnessed syncopal event. Patient woke up surrounded by a pool of emesis. Inner side of the right cheek sore. Patient not sure if she bit it. Patient went to attend to her. Patient witnessed patient having a glazed look and unresponsive for a few seconds. Patient shaking more strongly than from chills as per - almost similar to a dog they had afflicted with a seizure disorder. Patient somewhat confused after event. Bowel incontinence noted. Patient denies unusual headache, chest pain, S OB. No previous episodes. Medical History as above Surgical History : No surgery, pelvic laparoscopy, left oophorectomy, cholecystectomy, [facility] Family History : Seizure disorder, heart disease, stroke Personal/Social history : Non-smoker, occasional EtOH intake, computer work Allergies Allergy/AdvReac Type Severity Reaction Status Date / Time gluten Allergy Severe celiac's Verified 02/09/22 23:28 disease adalimumab Allergy Intermediate WHELTS AT Verified 02/09/22 23:28 INJECTION SITE bacitracin Allergy Intermediate Hives Verified 02/09/22 23:28 neomycin Allergy Intermediate Hives Verified 02/09/22 23:28 polymyxin B Allergy Intermediate Hives Verified 02/09/22 23:28 rabeprazole Allergy Intermediate Hives Verified 11/05/21 10:50 adhesive Allergy Mild Hives Verified 02/09/22 23:28 erythromycin base Allergy Mild HIVES Verified 02/09/22 23:28 moxifloxacin Allergy Mild VISUAL Verified 02/09/22 23:28 DISTURBANCE naproxen Allergy Mild Gastrointestinal Verified 02/09/22 23:28 Upset Home Medications Medication Instructions Recorded Confirmed Type buspirone 15 mg tablet 15 mg PO BID 06/10/20 02/09/22 History escitalopram oxalate 20 mg tablet 20 mg PO HS 06/10/20 02/09/22 History (Lexapro) fluticasone propionate 50 2 spray INTRANASAL QAM 06/10/20 02/09/22 History mcg/actuation nasal spray,suspension (Flonase Allergy Relief) lorazepam 1 mg tablet (Ativan) 1 mg PO DAILY PRN 06/10/20 02/09/22 History polyethylene glycol 3350 17 17 g PO Q OTHER DAY 06/10/20 02/09/22 History gram/dose oral powder (Miralax) clobetasol 0.05 % scalp solution 1 applic TOPICAL BID PRN 10/13/20 02/09/22 History estradiol 0.1 mg/24 hr semiweekly 1 patch TRANSDERMAL 2XWK #8 ea 11/05/21 02/09/22 Rx transdermal patch dicyclomine 10 mg capsule 10 mg PO BID PRN 02/09/22 02/09/22 History famotidine 20 mg tablet 20 mg PO BID 02/09/22 02/09/22 History Past Med/Surg History Medical History (Updated 02/10/22 @ 05:50 by Abel Hung MD) Anxiety Celiac disease Depression History of anesthesia reaction during EGD 5yrs ago at [facility] pt had a vasovagal response, recovered without any further issues---has had other EGD without any issues IBS (irritable bowel syndrome) Nausea and vomiting after administration of anesthetic agent Osteoarthritis Surgical History History of cholecystectomy History of colonoscopy with polypectomy History of esophagogastroduodenoscopy (EGD) recently had an EGD with ultrasound @ [facility] 04/23/2020 History of hysterectomy with unilateral oophorectomy History of laparoscopy endometriosis History of left oophorectomy History of oral surgery tooth removal of lower jaw d/t benign cyst History of sinus surgery History of tooth extraction History of wisdom tooth extraction Family History Father Family hx colonic polyps Hypertension Sister Epilepsy Aunt Epilepsy maternal Mother Heart disease Hypertension Grandfather (Paternal) Heart disease Uncle Family history of multiple Paternal Other No family history of adverse response to anesthesia Social History Smoking Status: Never smoker Second Hand Exposure: No; Hx Alcohol Use: Yes Alcohol type: wine and hard liquor Hx Substance Use: No Preferred Language: Romanian Communication Ability: Effective Practicing Dermatologist Required: No Beliefs That Will Affect Care: None Current Living Situation: Spouse Feels Safe at Home: Yes Assistive Devices: Contacts and Glasses Review of Systems Review of Systems: As per HPI, all 10 systems reviewed, all other ROS negative Physical Exam Physical Exam: GENERAL: Comfortable, pleasant, slightly anxious, no respiratory distress SKIN: Normal color, warm HEENT: Nogal palpebral conjunctivae, no ptosis, dry buccal mucosa NECK : Supple, no tenderness CHEST : CTA, no tenderness HEART : RRR, no obvious murmurs ABDOMEN: Some distention, mild central tenderness (chronic as per patient) EXTREMITIES : No LE swelling/tenderness, no other conspicuous deformities noted NEUROLOGIC : Coherent, no facial asymmetry, no other gross focality Results & Data Results & Data ([facility]) Vital Signs (Past 12 Hours) Vital Signs Temp Pulse Resp BP Pulse Ox 02/09/22 22:00 75 21 96 02/09/22 21:30 71 18 95 02/09/22 21:00 71 15 97 02/09/22 20:30 71 17 99 02/09/22 20:00 75 21 100 02/09/22 19:30 76 20 100 02/09/22 19:07 78 18 98 02/09/22 18:53 37 C 78 23 140/66 97 Laboratory Results Laboratory Results WBC 9.47 K/uL (4.8-10.8) 02/09/22 19:10 RBC 4.03 M/uL (4.2-5.4) L 03/14/22 19:10 Hgb 12.5 g/dL (12.0-16.0) 02/09/22 19:10 Hct 38.3 % (37-47) 02/09/22 19:10 MCV 95.0 fL (80-100) 02/09/22 19:10 MCH 31.0 pg (25-34) 02/09/22 19:10 MCHC 32.6 g/dL (32-36) 02/09/22 19:10 RDW Std Deviation 44.2 fL (36.4-46.3) 02/09/22 19:10 RDW Coeff of Mikal 12.7 % (11.5-14.5) 02/09/22 19:10 Plt Count 189 K/uL (130-400) 02/09/22 19:10 MPV 10.3 fL (7.4-10.4) 02/09/22 19:10 Immature Gran % (Auto) 0.2 % 02/09/22 19:10 Neut % (Auto) 89.6 % 02/09/22 19:10 Lymph % (Auto) 4.2 % 02/09/22 19:10 [place] % (Auto) 4.0 % 02/09/22 19:10 Eos % (Auto) 1.9 % 02/09/22 19:10 Baso % (Auto) 0.1 % 02/09/22 19:10 Neut # (Auto) 8.48 K/uL (1.4-6.5) H 02/09/22 19:10 Lymph # (Auto) 0.40 K/uL (1.2-3.4) L 02/09/22 19:10 [place] # (Auto) 0.38 K/uL (0.11-0.59) 02/09/22 19:10 Eos # (Auto) 0.18 K/uL (0-0.5) 02/09/22 19:10 Baso # (Auto) 0.01 K/uL (0-0.2) 02/09/22 19:10 Immature Gran # (Auto) 0.02 K/uL (0.00-0.02) 02/09/22 19:10 Sodium 135 mmol/L (136-145) L 02/09/22 19:10 Potassium 4.1 mmol/L (3.5-5.1) 02/09/22 19:10 Chloride 104 mmol/L (98-107) 02/09/22 19:10 Carbon Dioxide 25 mmol/L (21-32) 02/09/22 19:10 Anion Gap 6 (3-11) 02/09/22 19:10 BUN 15 mg/dl (6-23) 02/09/22 19:10 Creatinine 0.82 mg/dl (0.6-1.2) 02/09/22 19:10 Est Cr Clr Drug Dosing 84.6 ml/min 02/09/22 19:10 Est GFR ( Amer) 93.4 ml/min 02/09/22 19:10 Est GFR (Non-Af Amer) 80.6 ml/min 02/09/22 19:10 BUN/Creatinine Ratio 18.3 (10-20) 02/09/22 19:10 Glucose 111 mg/dl (70-99(Fasting)) H 02/09/22 19:10 Calcium 8.0 mg/dl (8.5-10.1) L 02/09/22 19:10 Magnesium 1.7 mg/dl (1.7-2.4) 02/09/22 19:10 Total Bilirubin 1.4 mg/dl (0.2-1.0) H 02/09/22 19:10 AST 41 U/L (13-39) H 02/09/22 19:10 ALT 16 U/L (7-52) 02/09/22 19:10 Alkaline Phosphatase 56 U/L (34-104) 02/09/22 19:10 Troponin I < 0.03 ng/ml (0-0.04) 02/09/22 19:10 Total Protein 6.1 gm/dl (6.0-8.3) 02/09/22 19:10 Albumin 3.8 gm/dl (3.4-5.0) 02/09/22 19:10 Globulin 2.3 gm/dl (2.5-4.0) L 02/09/22 19:10 Albumin/Globulin Ratio 1.7 (0.9-2) 02/09/22 19:10 TSH 3.936 uIu/ml (0.300-4.500) 02/09/22 19:10 SARS-CoV-2, RNA, NAAT NEGATIVE (NEGATIVE) 02/09/22 Unknown Impressions Chest X-Ray 02/09/22 20:18 SINGLE VIEW CHEST CLINICAL HISTORY: Generalized weakness. FINDINGS: An AP, portable, upright chest radiograph is compared to chest x-ray and chest CT dated 02/24/2017. The heart is top normal for projection. A 4 mm right upper lobe pulmonary nodule is unchanged dating back to 2017. There is no airspace consolidation or pleural effusion. No pneumothorax is seen. The bony thorax is grossly intact. IMPRESSION: No active disease in the chest. ACT 112: Negative or not required by law. Electronically signed by: Kuldeep Clancy M.D. 02/09/2022 9:[address] 02/09/22 20:43 CT SCAN OF THE CERVICAL SPINE CLINICAL HISTORY: Fall. COMPARISON STUDY: No priors. TECHNIQUE: CT scan of the cervical spine is performed from the skull base to the upper thoracic spine. Images are reviewed in the axial, sagittal, and coronal planes. IV contrast was not administered for this examination. A dose lowering technique was utilized adhering to the principles of ALARA. FINDINGS: Skeletal structures: The skeletal structures are osteopenic. There is no evidence of fracture or subluxation involving the cervical spine. Vertebral body height and alignment are maintained. There is straightening of the cervical lordosis. Anterior osteophytes are seen throughout. The odontoid process and lateral masses are intact. The atlantoaxial articulation is preserved noting productive degenerative change. The spinous processes appear intact. There is mild multilevel facet arthropathy. Intervertebral discs: The disc spaces are well maintained. Central canal: Widely patent. Soft tissues: The prevertebral and paraspinous soft tissues are within normal limits. There is a 1.8 cm thyroid nodule. This was also seen on a 2014 thyroid ultrasound. Calvarium: The visualized calvarium at the skull base appears intact. Brain parenchyma: Partially visualized brain parenchyma at the skull base is within normal limits. Sinuses and mastoids: There is trace fluid within the maxillary antra. Mild mucosal thickening is noted in the sphenoid sinuses. The mastoid air cells are well pneumatized. Lung apices: Clear as visualized. IMPRESSION: There is no evidence of fracture or subluxation involving the cervical spine. ACT 112: Negative or not required by law. Electronically signed by: Kuldeep Clancy M.D. 02/09/2022 9:[address] 02/09/22 20:43 CT head/brain wo con CLINICAL HISTORY: fall, hit head Technique: Contiguous axial CT images of the head were acquired from the base of the skull to the vertex without intravenous contrast administration. Images were viewed in brain, subdural and bone windows. Automated dose lowering techniques and/or adjustment according to patient size were utilized for this exam. Comparison: Comparison is made to CT head 04/10/2015 Findings: The ventricles, basal cisterns, and cerebral sulci are normal. There is no acute intracranial hemorrhage or evidence of acute territorial infarction. Neither mass effect, shift of the midline structures, nor abnormal extra-axial fluid collections are shown. Imaged portions of the paranasal sinuses and mastoid air cells are clear. The orbits appear normal. There are no acute fractures of the calvaria or scalp swelling. Impression: No acute intracranial hemorrhage, no evidence of acute territorial infarction or other acute intracranial disease process. ACT 112: Negative or not required by law. Electronically signed by: Donald Pedraza M.D. 02/09/2022 9:13 PM Diagnostic Findings EKG as per my interpretation:Rate 75, NSR, normal axis, no ischemia
[2022-02-10] MEDS ORDERED: LACTATED RINGER'S 1,000 ML IV ONE
[2022-02-10] MEDS ORDERED: LORazepam 2 MG/1 ML VIAL IV PRN ×2 (01:02→01:31)
[2022-02-10] MEDS ORDERED: ESCITALOPRAM OXALATE 20 MG TAB PO STA (01:02)
[2022-02-10] MEDS ORDERED: LORazepam 0.5 MG TAB PO PRN (01:31)
[2022-02-10] MEDS ORDERED: oxyCODONE HCL IR 5 MG TAB (IMMEDIATE RELEASE) PO PRN (01:31)
[2022-02-10] MEDS ORDERED: ACETAMINOPHEN 325 MG TAB PO PRN (01:31)
[2022-02-10] MEDS ORDERED: GADOBUTROL 65ML VIAL IV ONE (02:40)
[2022-02-10] MEDS ORDERED: ACETAMINOPHEN 325 MG TAB PO STA (04:59)
[2022-02-10 05:40] LABS: Hematocrit (blood only) 37.7 % (37-47); Hemoglobin 12.6 g/dL (12.0-16.0); Immature Granulocytes # (auto) 0.02 K/uL (0.00-0.02); Immature Granulocytes % (auto) 0.3 %; Lymphocytes # (auto) 0.24 K/uL (1.2-3.4); Mean Corpuscular Hemoglobin 31.3 pg (25-34); Mean Corpuscular Hgb Conc 33.4 g/dL (32-36); Mean Corpuscular Volume 93.8 fL (80-100); Mean Platelet Volume 9.7 fL (7.4-10.4); Monocytes % (auto) 2.5 %; Neutrophils # (auto) 7.48 K/uL (1.4-6.5); Neutrophils % (auto) 94.2 %; Platelet Count 169 K/uL (130-400); RDW Coefficient of Variation 12.9 % (11.5-14.5); Red Blood Count 4.02 M/uL (4.2-5.4); White Blood Count 7.94 K/uL (4.8-10.8)
[2022-02-10 06:05] LABS: BUN Creatinine Ratio 16.2 (10-20); Calcium 8.9 mg/dl (8.5-10.1); Creatinine Clr Calc Pharmacy 93.8 ml/min; Est GFR (African American) 105.7 ml/min; Est GFR (Non-African American) 91.2 ml/min; Potassium 4.3 mmol/L (3.5-5.1)
[2022-02-10 06:46] LABS: Appearance Urine Clear (Clear); Bacteria Urine Automated Negative (Negative); Bilirubin Urine Negative (Negative); Blood Urine 1+ (Negative); Color Urine Yellow; Epithelial Cell Urine Auto 20-30 /lpf (0-5); Glucose Urine UA Negative (Negative); Ketones Urine 1+ (Negative); Leukocyte Esterase Urine Negative (Negative); Nitrite Urine Negative (Negative); Protein Urine Negative (Negative); Specific Gravity Urine 1.029 (1.000-1.030); Urobilinogen Urine Negative (Negative); pH Urine 5.5 (4.5-7.5)
[2022-02-10] MEDS: PROMETHAZINE HCL 12.5 MG in SODIUM CHLORIDE 0.9% 50 ML IV PRN ×2 (07:15→19:58)
[2022-02-10 07:55] LABS: Estimated Average Glucose 105 mg/dl; Hemoglobin A1C 5.3 % (4.5-5.6)
--- NOTE | 2022-02-10 08:15 | Magnetic Resonance Report ---
MR brain seizure wo/w con HISTORY: 56 years-old Female poss sz . Acute seizure like activity. COMPARISON: Head CT of same day. TECHNIQUE: Multiplanar and multisequence MRI of the brain was obtained both with and without the use of 7 cc Gadavist utilizing seizure protocol. FINDINGS: [employer] Controller localizer images demonstrate no gross extracranial abnormality. Study is mildly motion degraded . 3 mm pineal gland cyst. Midline structures are otherwise unremarkable. There is no restricted diffu rebecca to suggest acute or subacute infarct. No acute intracranial hemorrhage, midline shift, abnormal extra-axial collection, hydrocephalus or intracranial mass. There are no significant T2/FLAIR signal abnormalities identified within the brain parenchyma. Mesial temporal lobes appear normal. No evidenc e of cortical dysplasia, villasenor matter heterotopia or acute seizure focus. No abnormal enhancement. The cerebral venous sinuses and major arterial flow voids appear patent. The skull, orbits and soft t issues are unremarkable. Mild mucosal thickening of the paranasal sinuses. The left mastoid air cells are clear. Trace right mastoid effusion. IMPRESSION: 1. No acute intracranial abnormality. 2. No acute seizure focus or abnormal enhancement. ACT 112: Negative or not required by law. The above report was generated using voice recognition software. It may contain grammatical, syntax o r spelling errors. Dictated: 02/10/2022 7:23 AM Transcribed: 02/10/2022 8:08 AM Page [id number] [email or web address] Electronically signed by: Gregg Vogt M.D. 02/10/2022 8:14 AM
[2022-02-10] MEDS: ENOXAPARIN INJ 30 MG/0.3 ML SYR SQ SCH (10:03)
[2022-02-10] MEDS: FLUTICASONE PROPIONATE NA SPR 16 GM BTL SCH (10:04)
[2022-02-10] MEDS: FAMOTIDINE 20 MG TAB PO SCH ×2 (10:04→20:04)
[2022-02-10] MEDS: busPIRone 15 MG TAB PO SCH ×2 (10:04→20:04)
--- NOTE | 2022-02-10 12:40 | Neurology Consultation ---
Date of Consultation February 10, 2022 Assessment & Plan (1) Syncope: 1. EEG- normal 2. syncope - unclear event in light of not feeling well 3. orthostatics - low blood pressure 4. would not start AEDs at this time 5. out patient EEG repeat routine 6. no driving for 6 months from last syncope event date, no heights, no bathing or swimming alone ok to discharge when medically stable. (2) Weakness: (3) Vomiting: Supervising Physician Co-Signing Physician Notes Patient was seen and examined. Agree with Amber Singleton PA-C. Admitted with presumed syncope in the setting of N/V and diarrhea. Feeling better now. No history of seizures. Routine EEG normal. Presumed vasovagal syncopal episode. Would defer on AED. Recommend repeat outpatient EEG. Follow up with Neurllogy PRN. History of Present Illness Reason for Consultation: poss seizures Requesting Physician: Kameron Pascual MD Attending Physician: Kameron Pascual MD History of Present Illness Yanely is a 56 year old female who presented to [facility] 02/09/22 after feeling ill with an upset stomach she took Mylanta and Gas-X she felt gassy. She felt cold and like she had some shivering she felt nauseated need to pass her bowels movement she sat on the commode and had a bowel movement that was loose she had no blood or melena. She went up to wash her hands felt funny and then she said she passed out woke up on the floor with vomit in her mouth. Her came and she laid back on the floor felt like her left hand was shaking but she was talking her eyes got glazed and she became unresponsive for a few seconds and she seemed to have some shaking but she was not postictal. No tongue biting no history of seizures. She has a headache in the left posterior scalp where she hit it on the floor. She feels back to her baseline. She does not have a history of seizures but a sister had juvenile seizures, and uncle. denies CP, SOB, abdominal pain, one sided weakness, numbness stingling, N, V. Allergies Allergy/AdvReac Type Severity Reaction Status Date / Time gluten Allergy Severe celiac's Verified 02/09/22 23:28 disease adalimumab Allergy Intermediate WHELTS AT Verified 02/09/22 23:28 INJECTION SITE bacitracin Allergy Intermediate Hives Verified 02/09/22 23:28 neomycin Allergy Intermediate Hives Verified 02/09/22 23:28 polymyxin B Allergy Intermediate Hives Verified 02/09/22 23:28 rabeprazole Allergy Intermediate Hives Verified 11/05/21 10:50 adhesive Allergy Mild Hives Verified 02/09/22 23:28 erythromycin base Allergy Mild HIVES Verified 02/09/22 23:28 moxifloxacin Allergy Mild VISUAL Verified 02/09/22 23:28 DISTURBANCE naproxen Allergy Mild Gastrointestinal Verified 02/09/22 23:28 Upset Home Medications Medication Instructions Recorded Confirmed Type buspirone 15 mg tablet 15 mg PO BID 06/10/20 02/09/22 History escitalopram oxalate 20 mg tablet 20 mg PO HS 06/10/20 02/09/22 History (Lexapro) fluticasone propionate 50 2 spray INTRANASAL QAM 06/10/20 02/09/22 History mcg/actuation nasal spray,suspension (Flonase Allergy Relief) lorazepam 1 mg tablet (Ativan) 1 mg PO DAILY PRN 06/10/20 02/09/22 History polyethylene glycol 3350 17 17 g PO Q OTHER DAY 06/10/20 02/09/22 History gram/dose oral powder (Miralax) clobetasol 0.05 % scalp solution 1 applic TOPICAL BID PRN 10/13/20 02/09/22 History estradiol 0.1 mg/24 hr semiweekly 1 patch TRANSDERMAL 2XWK #8 ea 11/05/21 02/09/22 Rx transdermal patch dicyclomine 10 mg capsule 10 mg PO BID PRN 02/09/22 02/09/22 History famotidine 20 mg tablet 20 mg PO BID 02/09/22 02/09/22 History Patient History Medical History (Updated 02/10/22 @ 05:50 by Abel Hung MD) Anxiety Celiac disease Depression History of anesthesia reaction during EGD 5yrs ago at [facility] pt had a vasovagal response, recovered without any further issues---has had other EGD without any issues IBS (irritable bowel syndrome) Nausea and vomiting after administration of anesthetic agent Osteoarthritis Surgical History History of cholecystectomy History of colonoscopy with polypectomy History of esophagogastroduodenoscopy (EGD) recently had an EGD with ultrasound @ [facility] 04/23/2020 History of hysterectomy with unilateral oophorectomy History of laparoscopy endometriosis History of left oophorectomy History of oral surgery tooth removal of lower jaw d/t benign cyst History of sinus surgery History of tooth extraction History of wisdom tooth extraction Family History Father Family hx colonic polyps Hypertension Sister Epilepsy Aunt Epilepsy maternal Mother Heart disease Hypertension Grandfather (Paternal) Heart disease Uncle Family history of multiple Paternal Other No family history of adverse response to anesthesia Social History Smoking Status: Never smoker Second Hand Exposure: No; Hx Alcohol Use: Yes Alcohol type: wine and hard liquor Hx Substance Use: No Preferred Language: Belarusian Communication Ability: Effective Processing Inspector Required: No Beliefs That Will Affect Care: None Current Living Situation: Spouse Feels Safe at Home: Yes Assistive Devices: Contacts and Glasses Review of Systems Review of Systems: All systems reviewed & are unremarkable except as noted in HPI & below Physical Exam Physical Exam: Physical Exam: Constitutional: appearance nourished, healthy and normal Ears, Nose, Mouth and Throat: mucous membranes moist, no injection and skin normal, eyes normal Cardiovascular: normal S-1 and S-2 and regular rate and rhythm Respiratory: clear to auscultation (CTA) and no rales, rhonchi or wheeze Musculoskeletal: no peripheral edema and good distal pulses Skin: no stigmata of neurocutaneous disease noted and normal and intact Eyes: extraocular muscles intact (EOMI) and pupils equal, round and reactive to light (PERRL) NEUROLOGIC EXAMINATION: Mental status: Alert and interactive Oriented to full date and location Oriented to person Speech fluent with no evidence of aphasia Cranial Nerves smile eye brow raise symmetric Reflexes: Deep tendon reflexes were symmetrical and graded 2/5. down going toes Sensory: light cool touch Coordination: finger to nose, heel to max Gait/Stance: Posture normal. Motor: Negative for pronator drift of out stretched arms with eyes closed. Strength: Normal - hand strength biceps triceps bilaterally 5/5 hip flex 5/5 bilaterally Results & Data ([facility]) Vital Signs (Past 12 Hours) Vital Signs Temp Pulse Pulse Pulse Resp BP Pulse Ox 02/10/22 11:18 36.8 C 74 18 101/63 95 02/10/22 08:04 37.4 C 75 18 109/70 93 02/10/22 07:20 36.8 C 02/10/22 04:33 82 02/10/22 01:00 37.6 C H 71 18 126/80 98 Laboratory Results Abnormal lab results 02/09/22 02/09/22 02/10/22 Range/Units 19:10 19:10 05:25 RBC 4.03 L 4.02 L (4.2-5.4) M/uL Neut # (Auto) 8.48 H 7.48 H (1.4-6.5) K/uL Lymph # (Auto) 0.40 L 0.24 L (1.2-3.4) K/uL Sodium 135 L (136-145) mmol/L Glucose 111 H (70-99(Fasting)) mg/dl Calcium 8.0 L (8.5-10.1) mg/dl Total Bilirubin 1.4 H (0.2-1.0) mg/dl AST 41 H (13-39) U/L Globulin 2.3 L (2.5-4.0) gm/dl Urine Ketones (Negative) Urine Blood (Negative) Urine RBC (Auto) (0-4) /hpf U Epithel Cells (Auto) (0-5) /lpf 02/10/22 02/10/22 Range/Units 05:25 06:36 RBC (4.2-5.4) M/uL Neut # (Auto) (1.4-6.5) K/uL Lymph # (Auto) (1.2-3.4) K/uL Sodium 134 L (136-145) mmol/L Glucose 109 H (70-99(Fasting)) mg/dl Calcium (8.5-10.1) mg/dl Total Bilirubin (0.2-1.0) mg/dl AST (13-39) U/L Globulin (2.5-4.0) gm/dl Urine Ketones 1+ H (Negative) Urine Blood 1+ H (Negative) Urine RBC (Auto) 10-30 H (0-4) /hpf U Epithel Cells (Auto) 20-30 H (0-5) /lpf Diagnostic Findings CXR-No active disease in the chest. CT c spine-There is no evidence of fracture or subluxation involving the cervical spine. CT head-No acute intracranial hemorrhage, no evidence of acute territorial infarction or other acute intracranial disease process. MRI brain-. No acute intracranial abnormality. No acute seizure focus or abnormal enhancement. TTE- 60-65% no ASD
--- NOTE | 2022-02-10 15:53 | Electroencephalogram ---
EEG Procedure Note Date of Service February 10, 2022 Start / End Times Start Time: 12:00 End Time: 12:[address] Abel Hung History A 56 year old woman with syncopal episode. EEG performed for evaluation of epileptiform activity. Home Medication List Medication Instructions Recorded Confirmed Type buspirone 15 mg tablet 15 mg PO BID 06/10/20 02/09/22 History escitalopram oxalate 20 mg tablet 20 mg PO HS 06/10/20 02/09/22 History (Lexapro) fluticasone propionate 50 2 spray INTRANASAL QAM 06/10/20 02/09/22 History mcg/actuation nasal spray,suspension (Flonase Allergy Relief) lorazepam 1 mg tablet (Ativan) 1 mg PO DAILY PRN 06/10/20 02/09/22 History polyethylene glycol 3350 17 17 g PO Q OTHER DAY 06/10/20 02/09/22 History gram/dose oral powder (Miralax) clobetasol 0.05 % scalp solution 1 applic TOPICAL BID PRN 10/13/20 02/09/22 His tory estradiol 0.1 mg/24 hr semiweekly 1 patch TRANSDERMAL 2XWK #8 ea 11/05/21 02/09/22 Rx transdermal patch dicyclomine 10 mg capsule 10 mg PO BID PRN 02/09/22 02/09/22 History famotidine 20 mg tablet 20 mg PO BID 02/09/22 02/09/22 History Inpatient Medication List Buspirone HCl (Buspirone 15 Mg Tab) 15 mg PO BID PENDING SALE TO [facility] Stop: 03/12/22 08:59 Last Admin: 02/10/22 10:04 Dose: 15 mg Documented by: [id number] Enoxaparin Sodium (Enoxaparin Inj 30 Mg/0.3 Ml Syr) 30 mg SQ QAM KELI Stop: 03/12/22 08:59 Last Admin: 02/10/22 10:03 Dose: 30 mg Documented by: [id number] Famotidine (Famotidine 20 Mg Tab) 20 mg PO BID KELI Stop: 03/12/22 08:59 Last Admin: 02/10/22 10:04 Dose: 20 mg Documented by: [id number] Fluticasone Propionate (Fluticasone Propionate Na Spr 16 Gm Btl) 2 sprays NA QAM KELI Stop: 03/12/22 08:59 Last Admin: 02/10/22 10:04 Dose: 2 sprays Documented by: [id number] Promethazine HCl 12.5 mg/ (Sodium Chloride) 50.5 mls @ 202 mls/hr IV Q6H PRN PRN Reason: Nausea And Vomiting Stop: 03/12/22 01:30 Last Infusion: 02/10/22 09:41 Dose: 0 mls/hr Documented by: [id number] Admin: 02/10/22 07:15 Dose: 202 mls/hr Documented by: [id number] Lorazepam (Lorazepam 2 Mg/1 Ml Vial) 0.25 mg IV Q1H PRN PRN Reason: anxiety pre/during mri Stop: 03/12/22 01:01 Last Admin: 02/10/22 01:46 Dose: 0.25 mg Documented by: [id number] Discontinued Medications Acetaminophen (Acetaminophen 325 Mg Tab) 650 mg PO NOW STA Stop: 02/10/22 05:00 Last Admin: 02/10/22 05:20 Dose: 650 mg Documented by: [id number] Escitalopram Oxalate (Escitalopram Oxalate 20 Mg Tab) 20 mg PO NOW STA Stop: 02/10/22 01:03 Last Admin: 02/10/22 04:37 Dose: 20 mg Documented by: [id number] Gadobutrol (Gadobutrol 65ml Vial) 7 ml IV ONCE ONE Stop: 02/10/22 02:41 Last Admin: 02/10/22 02:40 Dose: 7 ml Documented by: [id number] Calcium Gluconate () 1,000 mg in 60 mls @ 240 mls/hr IV NOW STA Stop: 02/09/22 22:42 Last Infusion: 02/09/22 23:47 Dose: 0 mls/hr Documented by: [id number] Admin: 02/09/22 23:20 Dose: 240 mls/hr Documented by: [id number] Sodium Chloride (Nss 1000ml) 1,000 mls @ 999 mls/hr IV .Q1H1M KELI Stop: 02/09/22 23:28 Last Infusion: 02/10/22 00:17 Dose: 0 mls/hr Documented by: [id number] Infusion: 02/10/22 00:16 Dose: 0 mls/hr Documented by: [id number] Admin: 02/09/22 23:19 Dose: 999 mls/hr Documented by: [id number] Lactated Ringer's (Lr) 1,000 mls @ 80 mls/hr IV .[id number] ONE Stop: 02/10/22 12:29 Last Infusion: 02/10/22 14:26 Dose: 0 mls/hr Documented by: [id number] Infusion: 02/10/22 03:24 Dose: 80 mls/hr Documented by: [id number] Infusion: 02/10/22 01:50 Dose: 0 mls/hr Documented by: [id number] Admin: 02/10/22 01:49 Dose: 80 mls/hr Documented by: [id number] Ondansetron HCl (Ondansetron Inj 2 Mg/Ml 2 Ml Vial) 4 mg IV NOW STA Stop: 02/09/22 22:27 Last Admin: 02/09/22 23:19 Dose: 4 mg Documented by: [id number] Description This is a 21 electrode EEG with a single channel dedicated to limited EKG. The electrodes were placed in accordance with the International 10-20 system. Report: At the onset of the EEG the patient is drowsy. The background is symmetric and well organized. The posterior dominant rhythm is 10 Hz. There is a normal anterior to posterior gradient. Drowsiness is characterized by increased theta activity, reduced blink rate, decreased myogenic artifact. Photic stimulation was performed and does not induce any abnormalities. No stage II sleep transients are noted. Interpretation Impression: This is a normal awake and drowsy routine EEG. There is no evidence of focal slowing or epileptiform activity.
--- NOTE | 2022-02-10 16:46 | Hospitalist Progress Note ---
Date of Service February 10, 2022 Assessment & Plan (1) Syncope: Plan: Possible related to vasovagal but need to r/o any seizure activity (buccal injury and bowel incontinence symptoms) CT head showed no acute intracranial abnormality MRI showed no acute intracranial finding CT cervical showed no evidence of fracture or subluxation involving the cervical spine. EEG showed normal awake and drowsy routine EEG with no evidence of focal slowing or epileptiform activity. Echo showed LV systolic function is normal with EF 60-65% Tele monitor showed no arrhythmia neuro on board No plan to start on any seizure med on discharge for now Ativan prn for breakthrough seizure while inpatient Will need to repeat EEG outpatient No driving for 6 months from last syncope event date, no heights, no bathing or swimming alone as per Neuro Continue fall and seizure precaution Continue monitor closely Hx GERD IBS constipation predominant stable on regimen anxiety/mood disorder Continue Buspirone Stable DVT prophylaxis. Lovenox subcu Full code Disposition Will discharge home tomorrow Patient requesting updates from providers. Mr. John Hidalgo, contact #[phone]. Admission and Anticipated Discharge Date Admission Date: February 09, 2022 Subjective Pt was seen and examined for follow up of syncope Lying in bed with no acute distress Pt said that she feels fine now She said that she had a syncopal episodes in the pass after she had an episode of vomiting She denies any dizziness, chest pain, palpitation,dizziness and SOB currently Review of Systems Review of Systems: All systems reviewed & are unremarkable except as noted in Subjective Physical Exam Physical Exam: General- No acute distress Head- atraumatic Eyes- PERRL, EOMI, ENT- oropharynx clear Neck- supple, no JVD Lungs- clear to auscultation Heart- regular rhythm; no murmur Abdomen- normal bowel sounds, soft, nontender Extremities- no calf tenderness Neuro- alert, oriented x 3; PERRL, EOMI; no facial palsy; no dysarthria Skin- warm & dry Results & Data Results & Data ([facility]) Vital Signs (Past 12 Hours) Vital Signs Temp Pulse Pulse Resp BP Pulse Ox 02/10/22 16:22 69 02/10/22 15:32 37.1 C 65 18 122/76 94 02/10/22 13:49 76 02/10/22 11:18 36.8 C 74 18 101/63 95 02/10/22 08:04 37.4 C 75 18 109/70 93 02/10/22 07:20 36.8 C
[2022-02-10] MEDS ORDERED: ESCITALOPRAM OXALATE 20 MG TAB PO SCH (21:00)
--- NOTE | 2022-02-11 06:01 | Electrocardiogram Report ---
Test Reason : Blood Pressure : / mmHG Vent. Rate : 076 BPM Atrial Rate : 076 BPM P-R Int : 144 ms QRS Dur : 080 ms QT Int : 378 ms P-R-T Axes : 042 000 034 degrees QTc Int : 425 ms Poor data quality, interpretation may be adversely affected Normal sinus rhythm When compared with ECG of 13-OCT-2020 13:15, No significant change was found Confirmed by Gurmeet Decker ([id number]) on 02/11/2022 6:01:33 AM Referred By: REFERRED SELF Confirmed By:Gurmeet Decker
[2022-02-11] MEDS: ENOXAPARIN INJ 30 MG/0.3 ML SYR SQ SCH (08:00)
[2022-02-11] MEDS: FLUTICASONE PROPIONATE NA SPR 16 GM BTL SCH (08:01)
[2022-02-11] MEDS: busPIRone 15 MG TAB PO SCH (08:01)
[2022-02-11] MEDS: FAMOTIDINE 20 MG TAB PO SCH (08:01)
[2022-02-11] MEDS ORDERED: POLYETHYLENE (MIRALAX) 17 GM PACK PO SCH (09:00)
[2022-02-11] MEDS ORDERED: DICYCLOMINE HCL 10 MG CAP PO PRN (09:56)
--- NOTE | 2022-02-11 10:40 | Gastrointestinal Consultation ---
Date of Consultation February 11, 2022 Assessment & Plan (1) Celiac disease: 56 year old female with history of IBS, celiac on gluten free diet, GERD s/p TIF admitted w/ syncopal event and questionable seizure activity after episode of abdominal pain 2 days ago, today pain is less severe and explained as lower abdominal cramping with nausea, no vomiting. Would recommend CTAP Denies GERD symptoms but if develop can use Pepcid 20 mg daily Would restart schedule Bently 10 mg three times daily - She was taking this scheduled, but was doing well so began using just as needed Gluten free diet If symptoms persist, OP EGD/Colonoscopy can be arranged with her regular GI provider Thank you for allowing us to participate in the care of this patient. Please call with any acute changes, questions or concerns. Please see addendum below with additional recommendation from my supervising physician. (2) Vomiting: Supervising Physician Co-Signing Physician Notes Reports no belly pain to me this morning PE - thin female in no acute distress, PE - ,a no scleral icterus noted, abd - soft nt nd Labs reviewed Imaging CT head reviewed Agree with further plan of care as a luciana. History of Present Illness Reason for Consultation: abd pain Requesting Physician: Tiffanie Attending Physician: Edwar Moreno MD History of Present Illness 56 year old female with history of IBS, celiac on gluten free diet, GERD s/p TIF who was admitted to [facility] with syncopal event after abdominal pain. Pt was seen and evaluated, chart reviewed .She notes two days ago she develoepd severe upper abd pain associated with nausea/vomiting. after onset, syncopal event with question of seizure activity was reported. In the ED she was evaluated by neurology and had unremarkable EEG, head CT and brain MRI. She notes lower abd pain today explained as sharp cramping. There is nausea today but no vomiting. Denies GERD. No recent ABD imaging EGD 2019 Colonoscopy 2017 Allergies Allergy/AdvReac Type Severity Reaction Status Date / Time gluten Allergy Severe celiac's Verified 02/09/22 23:28 disease adalimumab Allergy Intermediate WHELTS AT Verified 02/09/22 23:28 INJECTION SITE bacitracin Allergy Intermediate Hives Verified 02/09/22 23:28 neomycin Allergy Intermediate Hives Verified 02/09/22 23:28 polymyxin B Allergy Intermediate Hives Verified 02/09/22 23:28 rabeprazole Allergy Intermediate Hives Verified 11/05/21 10:50 adhesive Allergy Mild Hives Verified 02/09/22 23:28 erythromycin base Allergy Mild HIVES Verified 02/09/22 23:28 moxifloxacin Allergy Mild VISUAL Verified 02/09/22 23:28 DISTURBANCE naproxen Allergy Mild Gastrointestinal Verified 02/09/22 23:28 Upset Home Medications Medication Instructions Recorded Confirmed Type buspirone 15 mg tablet 15 mg PO BID 06/10/20 02/09/22 History escitalopram oxalate 20 mg tablet 20 mg PO HS 06/10/20 02/09/22 History (Lexapro) fluticasone propionate 50 2 spray INTRANASAL QAM 06/10/20 02/09/22 History mcg/actuation nasal spray,suspension (Flonase Allergy Relief) lorazepam 1 mg tablet (Ativan) 1 mg PO DAILY PRN 06/10/20 02/09/22 History polyethylene glycol 3350 17 17 g PO Q OTHER DAY 06/10/20 02/09/22 History gram/dose oral powder (Miralax) clobetasol 0.05 % scalp solution 1 applic TOPICAL BID PRN 10/13/20 02/09/22 History estradiol 0.1 mg/24 hr semiweekly 1 patch TRANSDERMAL 2XWK #8 ea 11/05/21 02/09/22 Rx transdermal patch dicyclomine 10 mg capsule 10 mg PO BID PRN 02/09/22 02/09/22 History famotidine 20 mg tablet 20 mg PO BID 02/09/22 02/09/22 History Patient History Medical History (Updated 02/10/22 @ 05:50 by Abel Hung MD) Anxiety Celiac disease Depression History of anesthesia reaction during EGD 5yrs ago at [facility] pt had a vasovagal response, recovered without any further issues---has had other EGD without any issues IBS (irritable bowel syndrome) Nausea and vomiting after administration of anesthetic agent Osteoarthritis Surgical History History of cholecystectomy History of colonoscopy with polypectomy History of esophagogastroduodenoscopy (EGD) recently had an EGD with ultrasound @ [facility] 04/23/2020 History of hysterectomy with unilateral oophorectomy History of laparoscopy endometriosis History of left oophorectomy History of oral surgery tooth removal of lower jaw d/t benign cyst History of sinus surgery History of tooth extraction History of wisdom tooth extraction Family History Father Family hx colonic polyps Hypertension Sister Epilepsy Aunt Epilepsy maternal Mother Heart disease Hypertension Grandfather (Paternal) Heart disease Uncle Family history of multiple Paternal Other No family history of adverse response to anesthesia Social History Smoking Status: Never smoker Second Hand Exposure: No; Hx Alcohol Use: Yes Alcohol type: wine and hard liquor Hx Substance Use: No Preferred Language: Kazakh Communication Ability: Effective Stock Patch Sawyer Required: No Beliefs That Will Affect Care: None Current Living Situation: Spouse Feels Safe at Home: Yes Assistive Devices: Contacts and Glasses Review of Systems Review of Systems: All systems reviewed & are unremarkable except as noted in HPI & below Physical Exam Constitutional: WD/WN, vitals as above Respiratory: normal respiratory effort, lungs clear to auscultation Cardiovascular: Rate/Rhythm: regular rate and regular rhythm Gastrointestinal (Abdomen): Inspection/Auscultation: abdomen normal to inspection and normal bowel sounds; abdomen not distended and no abdominal edema soft, tender lower abd Skin: no rashes, warm and dry Results & Data ([facility]) Vital Signs (Past 12 Hours) Vital Signs Temp Pulse Pulse Resp BP Pulse Ox 02/11/22 07:39 37.1 C 64 20 108/67 97 02/11/22 04:30 37.0 C 02/11/22 02:49 38.3 C H 92 H 18 122/71 98 02/11/22 01:59 73 02/10/22 22:55 37.2 C 68 16 115/70 96
--- NOTE | 2022-02-11 13:08 | Hospitalist Progress Note ---
Date of Service February 11, 2022 Assessment & Plan (1) Syncope: Plan: Possible related to vasovagal etiology secondary to GI symptoms no recurrence while admitted CT head showed no acute intracranial abnormality MRI showed no acute intracranial finding CT cervical showed no evidence of fracture or subluxation involving the cervical spine. EEG showed normal awake and drowsy routine EEG with no evidence of focal slowing or epileptiform activity. Echo showed LV systolic function is normal with EF 60-65% Tele monitor showed no arrhythmia Neurology consulted: No plan to start on any seizure med on discharge for now Ativan prn for breakthrough seizure while inpatient Will need to repeat EEG outpatient No driving for 6 months from last syncope event date, no heights, no bathing or swimming alone as per Neuro Hx GERD IBS constipation predominant -- CT abdomen/pelvis: pending GI consulted, recommend to resume usual Bentyl 10mg BID -- ff up as outpatient Anxiety/mood disorder Continue Buspirone Stable DVT prophylaxis. Lovenox subcu Full code Disposition anticipate d/c home later today Admission and Anticipated Discharge Date Admission Date: February 09, 2022 Subjective ff up for syncope, abdominal pain, n/v, etc seen resting in bed, comfortable in good spirits alert, oriented x 3 answering questions appropriately states she feels better overall had some abdominal discomfort last night and this morning had small BM yesterday would like diet to be advanced no fever/chills no chest pain, dyspnea, palpitations, dizziness no neurologic symptoms no other symptoms Review of Systems Review of Systems: all noted and negative except for above Physical Exam Physical Exam: General- oriented x 3, not in distress, speaks in sentences with no effort or accessory muscle use Eyes- anicteric Neck- no JVD Lungs- clear breath sounds bilaterally, no rales/wheezes Heart- normal rate, regular rhythm; no murmurs Abdomen- normal bowel sounds, nondistended, soft, nontender Extremities- no pretibial edema, no calf tenderness Neuro- alert, oriented x 3; no gross focal neurologic deficits Skin- warm & dry Results & Data Results & Data ([facility]) Vital Signs (Past 12 Hours) Vital Signs Temp Pulse Pulse Resp BP Pulse Ox 02/11/22 11:32 36.9 C 60 18 131/79 97 02/11/22 09:00 65 02/11/22 07:39 37.1 C 64 20 108/67 97 02/11/22 04:30 37.0 C 02/11/22 02:49 38.3 C H 92 H 18 122/71 98 02/11/22 01:59 73 all noted and reviewed including below (1) Syncope Syncope type: unspecified Qualified Code(s): R55 - Syncope and collapse
--- NOTE | 2022-02-11 14:06 | XRay Report ---
KUB CLINICAL HISTORY: Abdominal pain. COMPARISON STUDY: None. FINDINGS: There is a single loop of mildly dilated small bowel within the left upper quadrant. There is no convincing evidence for a bowel obstruction. Amount of stool is within normal limits. Cholecyst ectomy clips are noted. IMPRESSION: Single loop of mildly dilated small bowel within the left upper quadrant without convinc ing evidence for a bowel obstruction. ACT 112: Negative or not required by law. Electronically signed by: Nacho Levi M.D. 02/11/2022 2:04 PM
--- NOTE | 2022-02-11 14:26 | CT Scan Report ---
CT SCAN OF THE ABDOMEN AND PELVIS WITHOUT IV CONTRAST CLINICAL HISTORY: Generalized abdominal pain. COMPARISON STUDY: Abdominal ultrasound dated 04/22/2014 TECHNIQUE: CT scan of the abdomen and pelvis is performed from the lung bases to the proximal femora. Images are reviewed in the axial, sagittal, and coronal planes. IV contrast was not administered for this examination. Note that the examination was performed in suboptimal fashion without oral and IV contrast. A dose lowering technique was utilized adhering to the principles of ALARA. CT DOSE: 590.11 mGycm FINDINGS: Lung bases: The heart is normal in size and without pericardial effusion. The lung bases are clear. Liver: The unenhanced liver is normal in size, contour, and attenuation. There is no intrahepatic shawn iary ductal dilatation. A 12 mm left lobe cyst is incidentally noted. Gallbladder: Surgically absent noting clips in the gallbladder fossa. Spleen: Normal in size and attenuation. Pancreas: Unremarkable. Adrenal glands: Unremarkable. Kidneys: The unenhanced kidneys are normal in size and without hydronephrosis. There are no renal isabel culi identified. There is no evidence of contour deforming renal mass lesion. Abdominal vasculature: The abdominal aorta is normal in course and caliber. Bowel: There is mild to moderate colonic fecal retention. No bowel obstruction is identified. The yamilka endix is not visualized. Peritoneum: There is no intraperitoneal free air or abdominal ascites. There is a small fat-containin g umbilical hernia. Lymphadenopathy: None. Pelvic viscera: The bladder is normal as visualized. The uterus is surgically absent. No adnexal lesi on is identified. Skeletal structures: No lytic or blastic lesions are seen. IMPRESSION: No acute infectious or inflammatory findings are identified in the abdomen or pelvis on t his unenhanced examination. ACT 112: Negative or not required by law. Electronically signed by: Kuldeep Clancy M.D. 02/11/2022 2:25 PM
--- NOTE | 2022-02-11 15:45 | Discharge Summary ---
Date of Service February 11, 2022 Admission HPI Per Admitting Provider History obtained from patient, family, and records. Medical history significant for GERD, IBS constipation predominant, celiac disease, anxiety/mood disorder, psoriasis. Patient has a history of recurrent syncope attributed to orthostasis during her younger years. No recent episodes in the last few decades. Patient noted upset stomach and feeling unwell after a lunch of noodles. Patient felt cold and was shaking. Subsequent unwitnessed syncopal event. Patient woke up surrounded by a pool of emesis. Inner side of the right cheek sore. Patient not sure if she bit it. Patient went to attend to her. Patient witnessed patient having a glazed look and unresponsive for a few seconds. Patient shaking more strongly than from chills as per - almost similar to a dog they had afflicted with a seizure disorder. Patient somewhat confused after event. Bowel incontinence noted. Patient denies unusual headache, chest pain, S OB. No previous episodes. Medical History as above Surgical History : No surgery, pelvic laparoscopy, left oophorectomy, cholecystectomy, J[facility] Family History : Seizure disorder, heart disease, stroke Personal/Social history : Non-smoker, occasional EtOH intake, computer work Admission Exam (Per Admitting) Constitutional GENERAL: Comfortable, pleasant, slightly anxious, no respiratory distress SKIN: Normal color, warm HEENT: [place] palpebral conjunctivae, no ptosis, dry buccal mucosa NECK : Supple, no tenderness CHEST : CTA, no tenderness HEART : RRR, no obvious murmurs ABDOMEN: Some distention, mild central tenderness (chronic as per patient) EXTREMITIES : No LE swelling/tenderness, no other conspicuous deformities noted NEUROLOGIC : Coherent, no facial asymmetry, no other gross focality Discharge Data Consultations 02/09/22 22:29 ED Decision to Admit Stat 02/10/22 01:31 Consult Neurology Routine 02/11/22 09:56 Consult Gastroenterology Routine Procedures Performed SINGLE VIEW CHEST CLINICAL HISTORY: Generalized weakness. FINDINGS: An AP, portable, upright chest radiograph is compared to chest x-ray and chest CT dated 02/24/2017. The heart is top normal for projection. A 4 mm right upper lobe pulmonary nodule is unchanged dating back to 2017. There is no airspace consolidation or pleural effusion. No pneumothorax is seen. The bony thorax is grossly intact. IMPRESSION: No active disease in the chest. ACT 112: Negative or not required by law. Electronically signed by: Kuldeep Clancy M.D. 02/09/2022 9:[address] SCAN OF THE CERVICAL SPINE CLINICAL HISTORY: Fall. COMPARISON STUDY: No priors. TECHNIQUE: CT scan of the cervical spine is performed from the skull base to the upper thoracic spine. Images are reviewed in the axial, sagittal, and coronal planes. IV contrast was not administered for this examination. A dose lowering technique was utilized adhering to the principles of ALARA. FINDINGS: Skeletal structures: The skeletal structures are osteopenic. There is no evidence of fracture or subluxation involving the cervical spine. Vertebral body height and alignment are maintained. There is straightening of the cervical lordosis. Anterior osteophytes are seen throughout. The odontoid process and lateral masses are intact. The atlantoaxial articulation is preserved noting productive degenerative change. The spinous processes appear intact. There is mild multilevel facet arthropathy. Intervertebral discs: The disc spaces are well maintained. Central canal: Widely patent. Soft tissues: The prevertebral and paraspinous soft tissues are within normal limits. There is a 1.8 cm thyroid nodule. This was also seen on a 2014 thyroid ultrasound. Calvarium: The visualized calvarium at the skull base appears intact. Brain parenchyma: Partially visualized brain parenchyma at the skull base is within normal limits. Sinuses and mastoids: There is trace fluid within the maxillary antra. Mild mucosal thickening is noted in the sphenoid sinuses. The mastoid air cells are well pneumatized. Lung apices: Clear as visualized. IMPRESSION: There is no evidence of fracture or subluxation involving the cervical spine. ACT 112: Negative or not required by law. Electronically signed by: Kuldeep Clancy M.D. 02/09/2022 9:[address] head/brain wo con CLINICAL HISTORY: fall, hit head Technique: Contiguous axial CT images of the head were acquired from the base of the skull to the vertex without intravenous contrast administration. Images were viewed in brain, subdural and bone windows. Automated dose lowering techniques and/or adjustment according to patient size were utilized for this exam. Comparison: Comparison is made to CT head 04/10/2015 Findings: The ventricles, basal cisterns, and cerebral sulci are normal. There is no acute intracranial hemorrhage or evidence of acute territorial infarction. Neither mass effect, shift of the midline structures, nor abnormal extra-axial fluid collections are shown. Imaged portions of the paranasal sinuses and mastoid air cells are clear. The orbits appear normal. There are no acute fractures of the calvaria or scalp swelling. Impression: No acute intracranial hemorrhage, no evidence of acute territorial infarction or other acute intracranial disease process. ACT 112: Negative or not required by law. Electronically signed by: Donald Pedraza M.D. 02/09/2022 9:13 PM MR brain seizure wo/w con HISTORY: 56 years-old Female poss sz . Acute seizure like activity. COMPARISON: Head CT of same day. TECHNIQUE: Multiplanar and multisequence MRI of the brain was obtained both with and without the use of 7 cc Gadavist utilizing seizure protocol. FINDINGS: [employer] localizer images demonstrate no gross extracranial abnormality. Study is mildly motion degraded. 3 mm pineal gland cyst. Midline structures are otherwise unremarkable. There is no restricted diffusion to suggest acute or subacute infarct. No acute intracranial hemorrhage, midline shift, abnormal extra-axial collection, hydrocephalus or intracranial mass. There are no significant T2/FLAIR signal abnormalities identified within the brain parenchyma. Mesial temporal lobes appear normal. No evidence of cortical dysplasia, villasenor matter heterotopia or acute seizure focus. No abnormal enhancement. The cerebral venous sinuses and major arterial flow voids appear patent. The skull, orbits and soft tissues are unremarkable. Mild mucosal thickening of the paranasal sinuses. The left mastoid air cells are clear. Trace right mastoid effusion. IMPRESSION: 1. No acute intracranial abnormality. 2. No acute seizure focus or abnormal enhancement. ACT 112: Negative or not required by law. The above report was generated using voice recognition software. It may contain grammatical, syntax or spelling errors. Dictated: 02/10/2022 7:23 AM Transcribed: 02/10/2022 8:08 AM Page [id number] [email or web address] Electronically signed by: Gregg Vogt M.D. 02/10/2022 8:[address] SCAN OF THE ABDOMEN AND PELVIS WITHOUT IV CONTRAST CLINICAL HISTORY: Generalized abdominal pain. COMPARISON STUDY: Abdominal ultrasound dated 04/22/2014 TECHNIQUE: CT scan of the abdomen and pelvis is performed from the lung bases to the proximal femora. Images are reviewed in the axial, sagittal, and coronal planes. IV contrast was not administered for this examination. Note that the examination was performed in suboptimal fashion without oral and IV contrast. A dose lowering technique was utilized adhering to the principles of ALARA. CT DOSE: 590.11 mGycm FINDINGS: Lung bases: The heart is normal in size and without pericardial effusion. The lung bases are clear. Liver: The unenhanced liver is normal in size, contour, and attenuation. There is no intrahepatic biliary ductal dilatation. A 12 mm left lobe cyst is incidentally noted. Gallbladder: Surgically absent noting clips in the gallbladder fossa. Spleen: Normal in size and attenuation. Pancreas: Unremarkable. Adrenal glands: Unremarkable. Kidneys: The unenhanced kidneys are normal in size and without hydronephrosis. There are no renal calculi identified. There is no evidence of contour deforming renal mass lesion. Abdominal vasculature: The abdominal aorta is normal in course and caliber. Bowel: There is mild to moderate colonic fecal retention. No bowel obstruction is identified. The appendix is not visualized. Peritoneum: There is no intraperitoneal free air or abdominal ascites. There is a small fat-containing umbilical hernia. Lymphadenopathy: None. Pelvic viscera: The bladder is normal as visualized. The uterus is surgically absent. No adnexal lesion is identified. Skeletal structures: No lytic or blastic lesions are seen. IMPRESSION: No acute infectious or inflammatory findings are identified in the abdomen or pelvis on this unenhanced examination. ACT 112: Negative or not required by law. Electronically signed by: Kuldeep Clancy M.D. 02/11/2022 2:25 PM Hospital Course (1) Syncope: Possible related to vasovagal etiology secondary to GI symptoms no recurrence while admitted CT head showed no acute intracranial abnormality MRI showed no acute intracranial finding CT cervical showed no evidence of fracture or subluxation involving the cervical spine. EEG showed normal awake and drowsy routine EEG with no evidence of focal slowing or epileptiform activity. Echo showed LV systolic function is normal with EF 60-65% Tele monitor showed no arrhythmia Neurology consulted- Dr. Garcia: Not recommending anti-epilepsy drug at this time Will need to repeat EEG outpatient No driving for 6 months from last syncope event date, no heights, no bathing or swimming alone as per Neuro [employer] form completed, discussed with patient ff up with Dr. Garcia in 4 weeks Hx GERD IBS constipation predominant -- CT abdomen/pelvis:No acute infectious or inflammatory findings are identified in the abdomen or pelvis on this unenhanced examination. GI consulted, recommend to resume usual Bentyl 10mg BID -- ff up as outpatient Abnormal Chest xray, CT Findings -- Pulmonary, Thyroid Nodules Hepatic Cyst -- Please refer to full report in the Ordered Studies section above -- Further work up, management, and ff up as outpatient Anxiety/mood disorder Continue Buspirone Stable DVT prophylaxis. Lovenox subcu Full code Disposition d/c home today ff up with PCP in 1 week ff up with Neurologist in 4 weeks ff up with GI as scheduled
== END 2022-02-11 18:43 | disposition home or self-care (01) ==
LOC: ED 19:02 → 2W 19:02 → SUATTDRO 23:51 → 2W 02-10 01:42